=== PATIENT | female | born 1960 | race Hispanic/Latino ===

== ENCOUNTER 2016-03-14 11:04 | Emergency (ER) | payer SELFPAY ==
--- NOTE | 2016-03-14 15:28 | Emergency Department Report ---
ED Extremity Problem HPI - General Chief complaint: Extremity Injury, Lower Stated complaint: LEFT KNEE PAIN Time Seen by Provider: 03/14/16 15:15 Source: patient Mode of arrival: Ambulatory Limitations: No Limitations - Related Data Previous Rx's Medication Instructions Recorded Last Taken Type Acetaminophen with Codeine 1 tab PO Q6HR #20 tab 03/14/16 Unknown Rx [Acetaminophen-Codeine #4 TAB] Allergies Allergy/AdvReac Type Severity Reaction Status Date / Time naproxen Allergy Nausea Verified 03/14/16 11:55 ED Review of Systems ROS: Stated complaint: LEFT KNEE PAIN Other details as noted in HPI ED Past Medical Hx - Past Medical History Previous Medical History?: Yes Hx Hypertension: Yes Hx Liver Disease: Yes Additional medical history: thyroid, panreatitis - Surgical History Past Surgical History?: No - Social History Smoking Status: Current Every Day Smoker Substance Use Type: None - Medications Home Medications: Home Medications Medication Instructions Recorded Confirmed Last Taken Type Acetaminophen with Codeine 1 tab PO Q6HR #20 tab 03/14/16 Unknown Rx [Acetaminophen-Codeine #4 TAB] ED Physical Exam - General Limitations: No Limitations General appearance: alert, in no apparent distress - Head Head exam: Present: atraumatic, normocephalic - Expanded Lower Extremity Exam Left Knee exam: Present: full ROM, tenderness, swelling, erythema ED Course Vital Signs 03/14/16 11:46 Temperature 97.7 F Pulse Rate 94 H Respiratory 16 Rate Blood Pressure 158/92 O2 Sat by Pulse 100 Oximetry ED Medical Decision Making - Radiology Data Radiology results: image reviewed 03/14/16 16:00 - Radiology Dept. Note by KETURAH ONTIVEROS [facility] Num: [id number] : 1960 Patient Age: 56 LLE VENOUS DUPLEX COMPLETED. VAS LAB PRELIMINARY REPORT; NO EVIDENCE OF DVT/SVT NOTED IN VESSELS/SEGMENTS EXAMINED. PHYSICIANS REPORT TO FOLLOW... (RSK) Initialized on 03/14/16 16:00 - END OF NOTE FINAL REPORT EXAM: XR KNEE 1-2V RT HISTORY: knee pain TECHNIQUE: Left knee 2 views PRIORS: None. FINDINGS: No fracture is identified. No dislocation seen. No evidence of joint effusion. Patella demonstrates normal positioning. No acute bony abnormality identified. IMPRESSION: Negative knee series - Medical Decision Making Patient's been evaluated by this provider fast track. Ordered a Doppler for unilateral swelling and pain. Doppler came back negative. I will order a x ray of her left knee. We will treat patient for pain. We will have patient follow up with the primary care provider. Patient verbalized understanding Critical care attestation.: If time is entered above; I have spent that time in minutes in the direct care of this critically ill patient, excluding procedure time. ED Disposition Clinical Impression: Left knee pain Qualifiers: Chronicity: chronic Qualified Code(s): M25.562 - Pain in left knee; G89.29 - Other chronic pain Clinical Impression: (Ruled Out): Cellulitis and abscess of leg Disposition: DISCHARGED TO HOME OR SELFCARE Is pt being admited?: No Does the pt Need Aspirin: No Condition: Stable Additional Instructions: Is very importantly to follow with her primary care practitioner this is a chronic issue. You will be discharged on Tylenol No. 4 for pain control. Prescriptions: Acetaminophen with Codeine [Acetaminophen-Codeine #4 TAB] 1 tab PO Q6HR #20 tab Referrals: KATYA BARLOW MD [Primary Care Provider] - 3-5 Days TR CORONA MD [Staff Physician] - 3-5 Days
[2016-03-14] MEDS ORDERED: NORCO 5/325 PO ONE (17:27)
--- NOTE | 2016-03-14 18:24 | XRay Report ---
FINAL REPORT EXAM: XR KNEE 1-2V RT HISTORY: knee pain TECHNIQUE: Left knee 2 views PRIORS: None. FINDINGS: No fracture is identified. No dislocation seen. No evidence of joint effusion. Patella demonstrates normal positioning. No acute bony abnormality identified. IMPRESSION: Negative knee series
[2016-03-14 18:47] VITALS: BP 152/86
== END 2016-03-14 18:48 | disposition home or self-care (01) ==
LOC: ED 11:04
DX: M25.562 Pain in left knee (principal); G89.29 Other chronic pain; I10 Essential (primary) hypertension; F17.200 Nicotine dependence, unspecified, uncomplicated; Z88.8 Allergy status to other drugs, medicaments and biological substances

== ENCOUNTER 2016-05-19 17:30 | Emergency (ER) | payer SELFPAY ==
[2016-05-19 18:20] VITALS: BP 179/110
--- NOTE | 2016-05-19 18:42 | Emergency Department Report ---
Chief Complaint: Abdominal Pain Stated Complaint: ABD PAIN /BRUISING Time Seen by Provider: 05/19/16 18:33 - HPI History of Present Illness: 56-year-old female comes in for abdominal pain bruising of her lower abdominal 3 days. She admits to nausea vomiting fever persists. She states that her stool is black and tarry. She has a history of pancreatitis disease bipolar illness. - Exam Vital Signs: Vital Signs 05/19/16 18:14 Temperature 97.8 F Pulse Rate 109 H Respiratory 20 Rate Blood Pressure 179/110 O2 Sat by Pulse 99 Oximetry Physical Exam: The case is alert and oriented tearful in exam room cardiovascular S1-S2 regular rate and rhythm mildly tacky respiratory clear to auscultation bilateral abdomen soft and very tender ecchymotic from her suprapubic down to her vaginal. There is swelling to her lower abdomen and suprapubic area. MSE screening note: Focused history and physical exam performed. Due to findings the following was ordered: CBC CMP lipase PT PTT UA or patient be evaluated the main ER ED Disposition for MSE Condition: Stable Instructions: Abdominal Pain (ED)
[2016-05-19 19:31] LABS: Hematocrit 36.3 % (30.3-42.9); Hemoglobin 12.2 gm/dl (10.1-14.3); Mean Corpuscular HGB Conc 34 % (30-34); Mean Corpuscular Hemoglobin 31 pg (28-32); Mean Corpuscular Volume 91 fl (79-97); Platelet Count 146 K/mm3 (140-440); Red Blood Count 3.98 M/mm3 (3.65-5.03); Red Cell Distribution Width 14.4 % (13.2-15.2); White Blood Count 8.4 K/mm3 (4.5-11.0)
[2016-05-19 19:41] LABS: Alanine Aminotransferase 36 units/L (7-56); Albumin 3.4 g/dL (3.9-5); Albumin/Globulin Ratio 0.6 %; Alkaline Phosphatase 137 units/L (35-129); Anion Gap 15 mmol/L; BUN/Creatinine Ratio 11.66; Bilirubin,Total 1.6 mg/dL (0.1-1.2); Blood Urea Nitrogen 7 mg/dL (7-17); Calcium 8.5 mg/dL (8.4-10.2); Carbon Dioxide 23 mmol/L (22-30); Chloride 99.7 mmol/L (98-107); Glucose 117 mg/dL (65-100); Potassium 3.2 mmol/L (3.6-5.0); Sodium 134 mmol/L (137-145); Total Protein 9.5 g/dL (6.3-8.2)
[2016-05-19 19:46] LABS: INR 1.02 (0.87-1.13)
[2016-05-19 19:47] LABS: Partial Thromboplastin Time 31.2 Sec. (24.2-36.6)
[2016-05-19] MEDS ORDERED: NACL ONE (21:11)
--- NOTE | 2016-05-22 18:16 | ED Elopement Review ---
ED Pt Elopement review - Results review Lab results: Laboratory Tests 05/19/16 05/19/16 05/19/16 19:05 19:05 19:05 WBC 8.4 RBC 3.98 Hgb 12.2 Hct 36.3 MCV 91 MCH 31 MCHC 34 RDW 14.4 Plt Count 146 PT 13.3 INR 1.02 APTT 31.2 Sodium 134 L Potassium 3.2 L Chloride 99.7 Carbon Dioxide 23 Anion Gap 15 BUN 7 Creatinine 0.6 L Estimated GFR > 60 BUN/Creatinine Ratio 11.66 Glucose 117 H Calcium 8.5 Total Bilirubin 1.6 H AST 53 H ALT 36 Alkaline Phosphatase 137 H Total Protein 9.5 H Albumin 3.4 L Albumin/Globulin Ratio 0.6 Lipase 05/19/16 19:05 WBC RBC Hgb Hct MCV MCH MCHC RDW Plt Count PT INR APTT Sodium Potassium Chloride Carbon Dioxide Anion Gap BUN Creatinine Estimated GFR BUN/Creatinine Ratio Glucose Calcium Total Bilirubin AST ALT Alkaline Phosphatase Total Protein Albumin Albumin/Globulin Ratio Lipase 83 H - Call Back decision Pt Call Back Decision: Pt to F/U with PMD (mildly elevated liver function tests and lipase)
== END 2016-05-19 20:45 | disposition left against medical advice (07) ==
LOC: ED 17:30
DX: R10.30 Lower abdominal pain, unspecified (principal); R11.2 Nausea with vomiting, unspecified; R50.9 Fever, unspecified; Z53.21 Procedure and treatment not carried out due to patient leaving prior to being seen by health care provider
CPT/HCPCS: 36415; 80053; 83690; 85027; 85610; 85730

== ENCOUNTER 2017-01-11 15:15 | Emergency (ER) | payer MEDICAID ==
[2017-01-11 17:03] LABS: Basophils % (Auto) 0.8 % (0.0-1.8); Eosinophils % (Auto) 3.7 % (0.0-4.3); Hematocrit 38.4 % (30.3-42.9); Hemoglobin 12.8 gm/dl (10.1-14.3); Mean Corpuscular HGB Conc 33 % (30-34); Mean Corpuscular Hemoglobin 32 pg (28-32); Mean Corpuscular Volume 96 fl (79-97); Red Blood Count 4.01 M/mm3 (3.65-5.03); Red Cell Distribution Width 13.3 % (13.2-15.2); White Blood Count 4.8 K/mm3 (4.5-11.0)
[2017-01-11 17:12] LABS: INR 1.14 (0.87-1.13)
[2017-01-11 17:13] LABS: Partial Thromboplastin Time 31.6 Sec. (24.2-36.6)
[2017-01-11 17:28] LABS: Alanine Aminotransferase 81 units/L (7-56); Albumin 3.3 g/dL (3.9-5); Albumin/Globulin Ratio 0.7 %; Alkaline Phosphatase 122 units/L (35-129); Anion Gap 16 mmol/L; BUN/Creatinine Ratio 13; Blood Urea Nitrogen 8 mg/dL (7-17); Calcium 8.2 mg/dL (8.4-10.2); Carbon Dioxide 23 mmol/L (22-30); Chloride 105.2 mmol/L (98-107); Glucose 105 mg/dL (65-100); Lipase 70 units/L (13-60); Potassium 3.7 mmol/L (3.6-5.0); Sodium 140 mmol/L (137-145); Total Protein 7.9 g/dL (6.3-8.2)
[2017-01-11 17:52] LABS: Platelet Count 79 K/mm3 (140-440)
--- NOTE | 2017-01-11 20:27 | Cat Scan Report ---
FINAL REPORT PROCEDURE: CT CERVICAL SPINE WO CON TECHNIQUE: Computerized tomography of the cervical spine was performed from the skull base to T1 without contrast material. HISTORY: pain sp fall COMPARISON: No prior studies are available for comparison. FINDINGS: There is reversal of cervical lordosis. Prominent diffuse arthritic changes are seen with uncovertebral osteophytes and facet hypertrophy causing prominent bilateral neural foraminal stenosis at C3-4, C4-5, C5-6, and C6-7. Moderate central canal stenosis is seen due to these osteophytes at C4-5 and C5-6. No subluxation is seen. No prevertebral edema is seen. No C-spine fracture is seen. There may be minimal central disc bulge at C3-4. IMPRESSION: Reversal of cervical lordosis could be acute or chronic. Prominent arthritic changes are seen in the cervical spine. Mild central disc bulge is suspected at C3-4.
[2017-01-11] MEDS ORDERED: VALIUM PO ONE (20:38)
[2017-01-11] MEDS ORDERED: NORCO 5/325 PO ONE (20:38)
[2017-01-11] MEDS ORDERED: ZOFRAN ODT PO ONE (20:38)
--- NOTE | 2017-01-11 21:50 | XRay Report ---
FINAL REPORT PROCEDURE: XR CHEST ROUTINE 2V TECHNIQUE: Two views of the chest are obtained HISTORY: ble edema, chf COMPARISON: No prior studies are available for comparison. FINDINGS: The heart is normal in size. There is no focal infiltrate, pneumothorax or pleural effusion. IMPRESSION: No abnormalities are seen.
--- NOTE | 2017-01-11 22:14 | Emergency Department Report ---
HPI - General Chief Complaint: Neck Pain/Injury Time Seen by Provider: 01/11/17 20:01 - HPI HPI: 56-year-old female presents today complaining of neck pain post slipping and falling yesterday. Rates her pain as a 10 out of 10. Denies head injury or loss of consciousness. Denies trying any medication for pain relief. Patient also complaining of bilateral lower extremity edema 6 days. Denies fever, chills, nausea, vomiting, chest pain, shortness of breath, abdominal pain, dizziness, confusion, headache. Patient is currently taking Zoloft, lisinopril and levothyroxine and is being followed at [facility]. Patient also has history of hep C and pancreatitis. ED Past Medical Hx - Past Medical History Previous Medical History?: Yes Hx Hypertension: Yes Hx Liver Disease: Yes (hep C; cirrohasis) Hx Psychiatric Treatment: Yes (Bipolar) Additional medical history: thyroid, panreatitis - Surgical History Past Surgical History?: No - Social History Smoking Status: Current Every Day Smoker Substance Use Type: Alcohol - Medications Home Medications: Home Medications Medication Instructions Recorded Confirmed Last Taken Type Acetaminophen with Codeine 1 tab PO Q6HR #20 tab 03/14/16 Unknown Rx [Acetaminophen-Codeine #4 TAB] HYDROcodone/ACETAMINOPHEN [[place] 1 each PO Q6H #15 tablet 01/11/17 Unknown Rx 5-325 Tablet] Methocarbamol [Robaxin-750] 750 mg PO BID #14 tablet 01/11/17 Unknown Rx ED Review of Systems ROS: Stated complaint: FALL NECK INJURY Other details as noted in HPI Constitutional: denies: chills, fever, malaise Eyes: denies: eye pain ENT: denies: ear pain, throat pain, congestion Respiratory: denies: cough, shortness of breath, wheezing Cardiovascular: denies: chest pain, palpitations Endocrine: no symptoms reported Gastrointestinal: denies: abdominal pain, nausea, vomiting Musculoskeletal: other (lower extremity edema, neck pain) Skin: denies: rash, pruritus Neurological: denies: headache, weakness, numbness, paresthesias Physical Exam - Physical Exam Vital Signs: Vital Signs 01/11/17 16:15 Temperature 97.8 F Pulse Rate 74 Respiratory 18 Rate Blood Pressure 155/76 O2 Sat by Pulse 98 Oximetry Physical Exam: GENERAL: The patient is well-developed and well-nourished. Patient is in NAD. HEAD: Normocephalic. Atraumatic. EYES: Extraocular motions are intact, PERRL. THROAT: No erythema, swelling or exudates. Teeth and gingiva in good general condition. NECK: Vertebral and paraspinal tenderness to palpation and cervical region. Full range of motion, with pain. CHEST/LUNGS: Clear to auscultation throughout. HEART/CARDIOVASCULAR: Regular rate and rhythm. No murmurs, rubs or gallops. ABDOMEN: Abdomen is soft, nontender. Bowel sounds normoactive. No guarding or rebound tenderness. EXTREMITIES: 2+ bilateral lower extremity edema. No TTP of lower extremities. Peripheral pulses intact. Capillary refill less than 2 seconds. NEURO: Alert and oriented x 3. Normal gait. ED Course Vital Signs 01/11/17 16:15 Temperature 97.8 F Pulse Rate 74 Respiratory 18 Rate Blood Pressure 155/76 O2 Sat by Pulse 98 Oximetry ED Medical Decision Making - Lab Data Result diagrams: 01/11/17 16:29 01/11/17 16:29 Vital Signs 01/11/17 16:15 Temperature 97.8 F Pulse Rate 74 Respiratory 18 Rate Blood Pressure 155/76 O2 Sat by Pulse 98 Oximetry Lab Results 01/11/17 01/11/17 01/11/17 Range/Units 16:29 16:29 16:29 WBC 4.8 (4.5-11.0) K/mm3 RBC 4.01 (3.65-5.03) M/mm3 Hgb 12.8 (10.1-14.3) gm/dl Hct 38.4 (30.3-42.9) % MCV 96 (79-97) fl MCH 32 (28-32) pg MCHC 33 (30-34) % RDW 13.3 (13.2-15.2) % Plt Count 79 L (140-440) K/mm3 Lymph % (Auto) 34.3 (13.4-35.0) % [place] % (Auto) 5.9 (0.0-7.3) % Eos % (Auto) 3.7 (0.0-4.3) % Baso % (Auto) 0.8 (0.0-1.8) % Lymph # 1.6 (1.2-5.4) K/mm3 [place] # 0.3 (0.0-0.8) K/mm3 Eos # 0.2 (0.0-0.4) K/mm3 Baso # 0.0 (0.0-0.1) K/mm3 Seg Neutrophils % 55.3 (40.0-70.0) % Seg Neutrophils # 2.7 (1.8-7.7) K/mm3 PT 15.2 H (12.2-14.9) Sec. INR 1.14 H (0.87-1.13) APTT 31.6 (24.2-36.6) Sec. Sodium 140 (137-145) mmol/L Potassium 3.7 (3.6-5.0) mmol/L Chloride 105.2 (98-107) mmol/L Carbon Dioxide 23 (22-30) mmol/L Anion Gap 16 mmol/L BUN 8 (7-17) mg/dL Creatinine 0.6 L (0.7-1.2) mg/dL Estimated GFR > 60 ml/min BUN/Creatinine Ratio 13 % Glucose 105 H (65-100) mg/dL Calcium 8.2 L (8.4-10.2) mg/dL Total Bilirubin 0.90 (0.1-1.2) mg/dL AST 93 H (5-40) units/L ALT 81 H (7-56) units/L Alkaline Phosphatase 122 (35-129) units/L NT-Pro-B Natriuret Pep 546.0 (0-900) pg/mL Total Protein 7.9 (6.3-8.2) g/dL Albumin 3.3 L (3.9-5) g/dL Albumin/Globulin Ratio 0.7 % Lipase 70 H (13-60) units/L - Radiology Data Radiology results: report reviewed PROCEDURE: XR CHEST ROUTINE 2V TECHNIQUE: Two views of the chest are obtained HISTORY: ble edema, chf COMPARISON: No prior studies are available for comparison. FINDINGS: The heart is normal in size. There is no focal infiltrate, pneumothorax or pleural effusion. IMPRESSION: No abnormalities are seen. PROCEDURE: CT CERVICAL SPINE WO CON TECHNIQUE: Computerized tomography of the cervical spine was performed from the skull base to T1 without contrast material. HISTORY: pain sp fall COMPARISON: No prior studies are available for comparison. FINDINGS: There is reversal of cervical lordosis. Prominent diffuse arthritic changes are seen with uncovertebral osteophytes and facet hypertrophy causing prominent bilateral neural foraminal stenosis at C3-4, C4-5, C5-6, and C6-7. Moderate central canal stenosis is seen due to these osteophytes at C4-5 and C5-6. No subluxation is seen. No prevertebral edema is seen. No C-spine fracture is seen. There may be minimal central disc bulge at C3-4. IMPRESSION: Reversal of cervical lordosis could be acute or chronic. Prominent arthritic changes are seen in the cervical spine. Mild central disc bulge is suspected at C3-4. - Medical Decision Making 56-year-old female presents today complaining of neck pain post-fall. Her neck CT results reveal no acute findings, reversal of cervical lordosis is noted, prominent arthritic changes are seen in the cervical spine and mild central disc bulge is suspected at C3-C4. Patient has been provided with a referral for orthopedic to follow-up with. Patient reports some symptomatic relief post pain medication. She also complained bilateral lower extremity edema [address] Singh in regards to patient's lab results and chest x-ray. He recommended sending patient home on pain medication to follow up with primary care provider for a echocardiogram. Patient is recommended to avoid NSAIDs. Patient is in no acute distress at this time. She will be discharged home and is encouraged to follow up with a primary care provider. She will be sent home on Robaxin and Corn and is encouraged to return to the emergency room for any worsening symptoms. Critical care attestation.: If time is entered above; I have spent that time in minutes in the direct care of this critically ill patient, excluding procedure time. ED Disposition Clinical Impression: Cervicalgia, Lower extremity edema Fall Qualifiers: Encounter type: initial encounter Qualified Code(s): W19.XXXA - Unspecified fall, initial encounter Disposition: TO HOME OR SELFCARE Is pt being admited?: No Does the pt Need Aspirin: No Condition: Stable Instructions: Cervical Sprain (ED), Leg Edema (ED) Additional Instructions: Follow-up with primary care provider. Patient is advised to get an echocardiogram and avoid nonsteroidal anti-inflammatories. Return to the emergency department if symptoms worsen. Prescriptions: HYDROcodone/ACETAMINOPHEN [[place] 5-325 Tablet] 1 each PO Q6H #15 tablet Methocarbamol [Robaxin-750] 750 mg PO BID #14 tablet Referrals: PRIMARY CAREMD [Primary Care Provider] - 3-5 Days OTILIA RAMIREZ MD [Staff Physician] - 3-5 Days [facility] [Outside] - 3-5 Days RAUL PRINCE MD [Staff Physician] - 3-5 Days Forms: Work/School Release Form(ED) Time of Disposition: 22:39
[2017-01-11 22:51] VITALS: BP 143/93
== END 2017-01-11 22:57 | disposition home or self-care (01) ==
LOC: ED 15:15
DX: M54.2 Cervicalgia (principal); R60.9 Edema, unspecified; I10 Essential (primary) hypertension; F31.9 Bipolar disorder, unspecified; F17.200 Nicotine dependence, unspecified, uncomplicated; W01.0XXA Fall on same level from slipping, tripping and stumbling without subsequent striking against object, initial encounter; Y93.89 Activity, other specified; Y92.89 Other specified places as the place of occurrence of the external cause; Y99.8 Other external cause status
CPT/HCPCS: 36415; 71020; 72125; 80053; 83690; 83880; 85025; 85610; 85730; Q0162

== ENCOUNTER 2017-04-17 13:29 | Emergency (ER) | payer MEDICAID ==
[2017-04-17] MEDS ORDERED: ZOFRAN IV ONE (17:11)
[2017-04-17] MEDS ORDERED: MORPHINE IV ONE (17:11)
[2017-04-17] MEDS ORDERED: NACL 0.9% 1000 ML 1,000 ML IV ONE (17:11)
--- NOTE | 2017-04-17 17:15 | Emergency Department Report ---
Blank Doc - Documentation Documentation: Patient is 57 years old female history of pancreatitis, hepatitis C. Patient presented to the ER with epigastric pain nausea but no vomiting. Patient stated that she feel like she is falling apart. She denied any fever or diarrhea. On exam patient looks moderately dehydrated with dry skin, heart and lung exam are normal, abdomen is soft with epigastric tenderness, no rebound tenderness or guarding. Patient will need IV fluids, IV analgesia seek an anti- emetics with probable CT abdomen and pelvis depending on the lab.
[2017-04-17 17:37] LABS: Basophils % (Auto) 0.6 % (0.0-1.8); Eosinophils % (Auto) 0.9 % (0.0-4.3); Hematocrit 40.2 % (30.3-42.9); Hemoglobin 13.6 gm/dl (10.1-14.3); Lymphocytes # (Auto) 0.8 K/mm3 (1.2-5.4); Lymphocytes % (Auto) 14.7 % (13.4-35.0); Mean Corpuscular HGB Conc 34 % (30-34); Mean Corpuscular Hemoglobin 32 pg (28-32); Mean Corpuscular Volume 93 fl (79-97); Monocytes # (Auto) 0.4 K/mm3 (0.0-0.8); Monocytes % (Auto) 8.3 % (0.0-7.3); Red Blood Count 4.31 M/mm3 (3.65-5.03); Red Cell Distribution Width 13.8 % (13.2-15.2)
[2017-04-17 17:46] LABS: INR 1.04 (0.87-1.13)
[2017-04-17 17:53] LABS: Alanine Aminotransferase 78 units/L (7-56); Albumin 3.4 g/dL (3.9-5); BUN/Creatinine Ratio 11; Bilirubin,Direct 0.4 mg/dL (0-0.2); Blood Urea Nitrogen 8 mg/dL (7-17); Calcium 8.3 mg/dL (8.4-10.2); Hemolysis Index 10; Lipase 53 units/L (13-60)
[2017-04-17 18:25] LABS: Platelet Count 79 K/mm3 (140-440)
[2017-04-17 18:55] LABS: Bacteria,Urine 4+ /HPF (Negative); Bilirubin,Urine NEG (Negative); Blood,Urine SM (Negative); Color,Urine Yellow (Yellow); Mucus,Urine FEW /HPF; Nitrite,Urine POS (Negative); Protein,Urine <15 mg/dL mg/dL (Negative)
[2017-04-17] MEDS ORDERED: NACL ONE (18:58)
--- NOTE | 2017-04-17 19:57 | Cat Scan Report ---
FINAL REPORT PROCEDURE: CT ABDOMEN PELVIS W CON TECHNIQUE: Computerized axial tomography of the abdomen and pelvis was performed after the IV injection of iodinated nonionic contrast. HISTORY: abd pain COMPARISON: No prior studies are available for comparison. FINDINGS: Visualized lower thorax: No significant abnormality. Liver: Lobular contour. Spleen: Splenomegaly. Gallbladder and biliary system: The gallbladder is prominent in caliber. There is haziness of the gallbladder wall. The common bile duct measures 4 millimeters in caliber. Pancreas: Pancreatic tail calcification is noted, possibly related to prior pancreatitis. No acute inflammation is seen. Adrenals: Normal. Kidneys: Normal. GI tract: The appendix is visualized and does not appear inflamed. No bowel obstruction or acute inflammation is seen. Lymph nodes and mesentery: Upper abdominal lymph nodes measure up to 1 centimeter short axis. Vasculature: Normal. Bladder: Normal. Reproductive organs: Normal. Peritoneum: No free fluid. Musculoskeletal structures: No significant abnormality. Other: None. IMPRESSION: Possible gallbladder inflammation. Lobular contour of the liver is concerning for cirrhotic change and possible portal hypertension. Borderline enlarged upper abdominal lymph nodes.
--- NOTE | 2017-04-17 20:05 | Emergency Department Report ---
ED Abdominal Pain HPI - General Chief Complaint: Abdominal Pain Stated Complaint: STOMACH FLU Time Seen by Provider: 04/17/17 17:06 Source: patient Mode of arrival: Ambulatory Limitations: No Limitations - History of Present Illness Initial Comments: This is a 57-year-old female with a known history of alcohol use disorder and liver cirrhosis who was in her usual state of health but began having abdominal pain with nausea vomiting and a productive cough about 4 days ago. She states that she also has a history of pancreatitis. She was seen at [facility] and then sent to the emergency room for further evaluation. She also has a history of bipolar disease. MD Complaint: abdominal pain -: Gradual Location: diffuse Radiation: back Migration to: no migration Severity: moderate Severity scale (0 -10): 10 Quality: cramping Consistency: constant Improves With: nothing Worsens With: nothing Context: other (alcohol use.) Associated Symptoms: nausea, vomiting - Related Data Previous Rx's Medication Instructions Recorded Last Taken Type Acetaminophen with Codeine 1 tab PO Q6HR #20 tab 03/14/16 Unknown Rx [Acetaminophen-Codeine #4 TAB] HYDROcodone/ACETAMINOPHEN [[place] 1 each PO Q6H #15 tablet 01/11/17 Unknown Rx 5-325 Tablet] Methocarbamol [Robaxin-750] 750 mg PO BID #14 tablet 01/11/17 Unknown Rx Allergies Allergy/AdvReac Type Severity Reaction Status Date / Time naproxen Allergy Nausea Verified 04/17/17 13:49 ED Review of Systems ROS: Stated complaint: STOMACH FLU Other details as noted in HPI Comment: All other systems reviewed and negative Constitutional: see HPI Eyes: as per HPI ENT: as per HPI Respiratory: see HPI, cough Cardiovascular: as per HPI Endocrine: see HPI Gastrointestinal: abdominal pain, nausea, vomiting Genitourinary: as per HPI Musculoskeletal: as per HPI Skin: as per HPI Neurological: as per HPI Psychiatric: as per HPI Hematological/Lymphatic: as per HPI ED Past Medical Hx - Past Medical History Previous Medical History?: Yes Hx Hypertension: Yes Hx Liver Disease: Yes (hep C; cirrohosis) Hx Psychiatric Treatment: Yes (Bipolar) Additional medical history: thyroid, panreatitis - Surgical History Past Surgical History?: No - Social History Smoking Status: Current Every Day Smoker Substance Use Type: Alcohol, Marijuana - Medications Home Medications: Home Medications Medication Instructions Recorded Confirmed Last Taken Type Acetaminophen with Codeine 1 tab PO Q6HR #20 tab 03/14/16 Unknown Rx [Acetaminophen-Codeine #4 TAB] HYDROcodone/ACETAMINOPHEN [[place] 1 each PO Q6H #15 tablet 01/11/17 Unknown Rx 5-325 Tablet] Methocarbamol [Robaxin-750] 750 mg PO BID #14 tablet 01/11/17 Unknown Rx ED Physical Exam - General Limitations: No Limitations General appearance: alert, anxious, in distress (mild) - Head Head exam: Present: atraumatic, normocephalic - Eye Eye exam: Present: normal appearance, PERRL - ENT ENT exam: Present: normal exam - Neck Neck exam: Present: normal inspection, tenderness - Respiratory Respiratory exam: Present: normal lung sounds bilaterally. Absent: respiratory distress, wheezes, rales, rhonchi - Cardiovascular Cardiovascular Exam: Present: regular rate, normal rhythm, normal heart sounds - GI/Abdominal GI/Abdominal exam: Present: soft, tenderness (throughout), normal bowel sounds. Absent: guarding, rebound, rigid - Rectal Rectal exam: Present: deferred - Extremities Exam Extremities exam: Present: normal inspection, full ROM - Back Exam Back exam: Present: normal inspection, full ROM - Neurological Exam Neurological exam: Present: alert, oriented X3, CN II-XII intact - Psychiatric Psychiatric exam: Present: depressed - Skin Skin exam: Present: warm, dry, intact ED Course Vital Signs 04/17/17 13:43 Temperature 99.1 F Pulse Rate 92 H Respiratory 16 Rate Blood Pressure 148/98 O2 Sat by Pulse 98 Oximetry - Reevaluation(s) Reevaluation #1: 04/17/17 20:05 CT scan is pending at this time. We will evaluate for pancreatitis. I suspect that her pancreatitis is chronic in nature. 04/17/17 20:05 ED Medical Decision Making - Lab Data Result diagrams: 04/17/17 17:17 04/17/17 17:17 Critical care attestation.: If time is entered above; I have spent that time in minutes in the direct care of this critically ill patient, excluding procedure time. ED Disposition Clinical Impression: Alcohol abuse Abdominal pain Qualifiers: Abdominal location: generalized Qualified Code(s): R10.84 - Generalized abdominal pain Pancreatitis Qualifiers: Chronicity: acute Pancreatitis type: alcohol induced Acute pancreatitis complication: unspecified Qualified Code(s): K85.20 - Alcohol induced acute pancreatitis without necrosis or infection Disposition: DC-01 TO HOME OR SELFCARE Is pt being admited?: No Does the pt Need Aspirin: No Condition: Stable Instructions: Abdominal Pain (ED), Cirrhosis (ED), Polysubstance Abuse (ED), Pancreatitis (ED) Referrals: PRIMARY CARE, [Primary Care Provider] - 3-5 Days
--- NOTE | 2017-04-17 23:54 | Ultrasound Report ---
FINAL REPORT PROCEDURE: US ABDOMEN LIMITED TECHNIQUE: Real-time sonography was performed of the right upper quadrant with image documentation. CPT 81896 HISTORY: abd pain COMPARISON: No prior studies are available for comparison. FINDINGS: Liver demonstrates slightly increased echotexture without any focal lesions. Portal vein is patent with antegrade flow. Pancreas is not well visualized due to bowel gas. Right kidney measures 11 x 4 x 5 centimeters without calculi or hydronephrosis. It demonstrates normal echotexture. Gallbladder is well distended with normal outlines are normal wall thickness without calculi or pericholecystic collections. Common duct is 6 millimeters in caliber.. IMPRESSION: Fatty liver. Otherwise unremarkable study.
[2017-04-18 00:28] VITALS: BP 128/87
== END 2017-04-18 00:35 | disposition home or self-care (01) ==
LOC: ED 13:29
DX: K85.20 Alcohol induced acute pancreatitis without necrosis or infection (principal); R10.84 Generalized abdominal pain; F10.10 Alcohol abuse, uncomplicated; I10 Essential (primary) hypertension; F31.9 Bipolar disorder, unspecified; Z86.19 Personal history of other infectious and parasitic diseases; F17.200 Nicotine dependence, unspecified, uncomplicated; F12.10 Cannabis abuse, uncomplicated; Z88.8 Allergy status to other drugs, medicaments and biological substances
CPT/HCPCS: 36415; 74177; 76705; 80048; 80074; 81001; 83690; 85025; 85610; 96361; 96374; 96375; 99284; J2270; J2405; J7030; Q9967

== ENCOUNTER 2017-08-08 19:28 | Emergency (ER) | payer MEDICAID ==
[2017-08-08 20:53] LABS: Basophils # (Auto) 0.1 K/mm3 (0.0-0.1); Eosinophils # (Auto) 0.2 K/mm3 (0.0-0.4); Eosinophils % (Auto) 3.1 % (0.0-4.3); Hematocrit 39.5 % (30.3-42.9); Hemoglobin 13.4 gm/dl (10.1-14.3); Lymphocytes # (Auto) 2.2 K/mm3 (1.2-5.4); Lymphocytes % (Auto) 32.9 % (13.4-35.0); Mean Corpuscular HGB Conc 34 % (30-34); Mean Corpuscular Hemoglobin 32 pg (28-32); Mean Corpuscular Volume 93 fl (79-97); Monocytes # (Auto) 0.5 K/mm3 (0.0-0.8); Monocytes % (Auto) 8.1 % (0.0-7.3); Red Blood Count 4.24 M/mm3 (3.65-5.03); Red Cell Distribution Width 13.4 % (13.2-15.2)
[2017-08-08 20:54] LABS: Platelet Count 96 K/mm3 (140-440)
[2017-08-08 20:59] LABS: Alanine Aminotransferase 108 units/L (7-56); Albumin 3.5 g/dL (3.9-5); BUN/Creatinine Ratio 26; Blood Urea Nitrogen 13 mg/dL (7-17); Calcium 8.9 mg/dL (8.4-10.2); Hemolysis Index 38; Lipase 46 units/L (13-60)
[2017-08-09] MEDS ORDERED: SUBLIMAZE IV ONE (02:56)
[2017-08-09] MEDS ORDERED: ZOFRAN IV ONE (02:56)
--- NOTE | 2017-08-09 03:00 | Emergency Department Report ---
ED Abdominal Pain HPI - General Chief Complaint: Abdominal Pain Stated Complaint: HIGH BP /NECK SPASMS Time Seen by Provider: 08/09/17 02:52 Source: patient, police Mode of arrival: Wheelchair Limitations: No Limitations - History of Present Illness Initial Comments: Patient is 57 years old female brought into the ER by [place] [employer], patient is complaining of diffuse abdominal pain that is started this evening. Patient is unable to give more history. MD Complaint: abdominal pain -: Sudden Location: diffuse Radiation: none Migration to: no migration Quality: stabbing Improves With: nothing - Related Data Previous Rx's Medication Instructions Recorded Last Taken Type Acetaminophen with Codeine 1 tab PO Q6HR #20 tab 03/14/16 Unknown Rx [Acetaminophen-Codeine #4 TAB] HYDROcodone/ACETAMINOPHEN [[place] 1 each PO Q6H #15 tablet 01/11/17 Unknown Rx 5-325 Tablet] Methocarbamol [Robaxin-750] 750 mg PO BID #14 tablet 01/11/17 Unknown Rx Nitrofurantoin [place]/M-Cryst 100 mg PO Q12HR #14 capsule 04/17/17 Unknown Rx [Macrobid CAP] Ondansetron [Zofran Odt] 4 mg PO Q8HR PRN #20 tab.rapdis 04/17/17 Unknown Rx Allergies Allergy/AdvReac Type Severity Reaction Status Date / Time naproxen Allergy Nausea Verified 04/17/17 13:49 ED Review of Systems ROS: Stated complaint: HIGH BP /NECK SPASMS Other details as noted in HPI Comment: All other systems reviewed and negative Constitutional: denies: chills, fever Respiratory: denies: cough, orthopnea, shortness of breath Cardiovascular: denies: chest pain, palpitations Gastrointestinal: abdominal pain. denies: nausea, vomiting, diarrhea, constipation, hematemesis, hematochezia Musculoskeletal: denies: back pain ED Past Medical Hx - Past Medical History Hx Hypertension: Yes Hx Liver Disease: Yes (hep C; cirrohosis) Hx Psychiatric Treatment: Yes (Bipolar) Additional medical history: thyroid, panreatitis,neck pain r/t disc disease - Surgical History Past Surgical History?: No - Social History Smoking Status: Unknown if ever smoked Substance Use Type: None - Medications Home Medications: Home Medications Medication Instructions Recorded Confirmed Last Taken Type Acetaminophen with Codeine 1 tab PO Q6HR #20 tab 03/14/16 Unknown Rx [Acetaminophen-Codeine #4 TAB] HYDROcodone/ACETAMINOPHEN [[place] 1 each PO Q6H #15 tablet 01/11/17 Unknown Rx 5-325 Tablet] Methocarbamol [Robaxin-750] 750 mg PO BID #14 tablet 01/11/17 Unknown Rx Nitrofurantoin [place]/M-Cryst 100 mg PO Q12HR #14 capsule 04/17/17 Unknown Rx [Macrobid CAP] Ondansetron [Zofran Odt] 4 mg PO Q8HR PRN #20 tab.rapdis 04/17/17 Unknown Rx ED Physical Exam - General Limitations: No Limitations General appearance: alert, in distress - Head Head exam: Present: atraumatic, normocephalic, normal inspection - ENT ENT exam: Present: normal exam, normal orophraynx, mucous membranes moist - Neck Neck exam: Present: normal inspection, full ROM. Absent: tenderness, meningismus, lymphadenopathy, thyromegaly - Respiratory Respiratory exam: Present: normal lung sounds bilaterally. Absent: respiratory distress, wheezes, rales, rhonchi, stridor, chest wall tenderness, accessory muscle use, decreased breath sounds, prolonged expiratory - Cardiovascular Cardiovascular Exam: Present: regular rate, normal rhythm, normal heart sounds - GI/Abdominal GI/Abdominal exam: Present: soft, normal bowel sounds. Absent: distended, tenderness, guarding, rebound, rigid, organomegaly, mass, bruit, pulsatile mass , hernia - Extremities Exam Extremities exam: Present: normal inspection, full ROM, normal capillary refill - Back Exam Back exam: Present: normal inspection, full ROM. Absent: tenderness, CVA tenderness (R), CVA tenderness (L), muscle spasm, paraspinal tenderness, vertebral tenderness, rash noted - Neurological Exam Neurological exam: Present: alert - Skin Skin exam: Present: warm, intact, normal color ED Course Vital Signs 08/08/17 08/09/17 08/09/17 20:15 04:13 04:30 Temperature 98.4 F Pulse Rate 109 H Respiratory 20 16 16 Rate Blood Pressure 164/110 O2 Sat by Pulse 99 96 Oximetry ED Medical Decision Making - Lab Data Result diagrams: 08/08/17 20:29 08/08/17 20:29 - Radiology Data Radiology results: report reviewed Referring Physician: SOL PEREZ Patient Name: SAVANNAH LOGAN Date of : 1960 Sex: Female Report Date: 2017-08-09 Report Status: Finalized Findings [facility] [address] [place] [address] Cat Scan Report Signed Patient: SAVANNAH LOGAN MR#: [id number] : 1960 Acct:[id number] Age/Sex: 57 / F ADM Date: 08/08/17 Loc: ED Attending Dr: Ordering Physician: SOL PEREZ Date of Service: 08/09/17 Procedure(s): CT abdomen pelvis w con Accession Number(s): [id number] cc: SOL PEREZ FINAL REPORT EXAM: CT ABDOMEN PELVIS W CON HISTORY: abdominal pain TECHNIQUE: Routine axial imaging was obtained of the abdomen and pelvis following the intravenous injection of 100 cc of Omnipaque 350. Delayed imaging was obtained through the kidneys ureters and bladder. Sagittal and coronal reconstructions were reviewed. Comparison made study of 04/17/2017. FINDINGS: The lung bases are clear. Pleural fluid is not seen. There moderate size hiatal hernia. The liver has a lobulated contour compatible underlying cirrhosis. The gallbladder and biliary tree appear normal. The pancreas and adrenal glands appear normal. The spleen is at the upper limits normal in size and contains a calcified granuloma. The kidneys enhance normally. There calcification of the abdominal aorta. The bowel loops are normal in caliber and course. The appendix is normal in size and is retrocecal in position. There is no evidence of free fluid or adenopathy. In the pelvis the uterus and bladder appear normal. The skeletal structures reveal multilevel disc degeneration in the lower thoracic and lumbar spine. IMPRESSION: No acute process in the abdomen and pelvis. Contour changes of the liver compatible with underlying cirrhosis. Borderline splenomegaly. Multilevel disc degeneration in the lower thoracic and lumbar spine. Moderate size hiatal hernia. Transcribed By: RB Dictated By: OTILIA ARCHIBALD MD Electronically Authenticated By: OTILIA ARCHIBALD MD Signed Date/Time: 08/09/17409 DD/ 9 TD/TT: 08/09/17409 - Medical Decision Making Patient is awake, alert, in no acute distress. Patient brought into the ER with police clerk stated that she was arrested for methamphetamine. Officer left stating that patient can be discharged home after treatment. Critical care attestation.: If time is entered above; I have spent that time in minutes in the direct care of this critically ill patient, excluding procedure time. ED Disposition Clinical Impression: Abdominal pain, UTI (urinary tract infection) Disposition: TO HOME OR SELFCARE Is pt being admited?: No Condition: Stable Instructions: Abdominal Pain (ED), Urinary Tract Infection in Women (ED) Referrals: PRIMARY CARE, [Primary Care Provider] - 3-5 Days
--- NOTE | 2017-08-09 04:13 | Cat Scan Report ---
FINAL REPORT EXAM: CT ABDOMEN PELVIS W CON HISTORY: abdominal pain TECHNIQUE: Routine axial imaging was obtained of the abdomen and pelvis following the intravenous injection of 100 cc of Omnipaque 350. Delayed imaging was obtained through the kidneys ureters and bladder. Sagittal and coronal reconstructions were reviewed. Comparison made study of 04/17/2017. FINDINGS: The lung bases are clear. Pleural fluid is not seen. There moderate size hiatal hernia. The liver has a lobulated contour compatible underlying cirrhosis. The gallbladder and biliary tree appear normal. The pancreas and adrenal glands appear normal. The spleen is at the upper limits normal in size and contains a calcified granuloma. The kidneys enhance normally. There calcification of the abdominal aorta. The bowel loops are normal in caliber and course. The appendix is normal in size and is retrocecal in position. There is no evidence of free fluid or adenopathy. In the pelvis the uterus and bladder appear normal. The skeletal structures reveal multilevel disc degeneration in the lower thoracic and lumbar spine. IMPRESSION: No acute process in the abdomen and pelvis. Contour changes of the liver compatible with underlying cirrhosis. Borderline splenomegaly. Multilevel disc degeneration in the lower thoracic and lumbar spine. Moderate size hiatal hernia.
[2017-08-09 04:58] LABS: Bilirubin,Urine NEG (Negative); Blood,Urine NEG (Negative); Calcium Oxalate Crystals,Urine FEW; Color,Urine Yellow (Yellow); Hyaline Casts,Urine 1 /LPF; Mucus,Urine FEW /HPF; Protein,Urine <15 mg/dL mg/dL (Negative); Urobilinogen,Urine < 2.0 mg/dL (<2.0)
[2017-08-09 05:06] LABS: Benzodiazepines Screen,Urine PRESUMPTIVE NEGATIVE; Methadone Screen,Urine PRESUMPTIVE NEGATIVE; Opiate Screen,Urine PRESUMPTIVE NEGATIVE
[2017-08-09 05:20] LABS: Amphetamine Screen,Urine PRESUMPTIVE POSITIVE; Cannabinoid Screen,Urine PRESUMPTIVE POSITIVE; Cocaine Screen,Urine PRESUMPTIVE POSITIVE
[2017-08-09 05:54] VITALS: BP 150/81
== END 2017-08-09 05:58 | disposition home or self-care (01) ==
LOC: ED 19:28
DX: N39.0 Urinary tract infection, site not specified (principal); R10.9 Unspecified abdominal pain; I10 Essential (primary) hypertension; F31.9 Bipolar disorder, unspecified; Z88.8 Allergy status to other drugs, medicaments and biological substances
CPT/HCPCS: 36415; 74177; 80053; 80307; 81001; 83690; 85025; 96374; 96375; 99284; G0480; J2405; J3010; Q9967; 80320

== ENCOUNTER 2018-08-02 22:06 | Emergency (ER) | payer MEDICAID, OTHER ==
[2018-08-02] MEDS ORDERED: SUBLIMAZE IV ONE (22:50)
[2018-08-02] MEDS ORDERED: NACL 0.9% 500 ML 500 ML IV ONE (22:50)
[2018-08-02 23:17] LABS: Basophils % (Auto) 0.9 % (0.0-1.8); Eosinophils # (Auto) 0.2 K/mm3 (0.0-0.4); Eosinophils % (Auto) 4.7 % (0.0-4.3); Hematocrit 31.9 % (30.3-42.9); Hemoglobin 11.3 gm/dl (10.1-14.3); Lymphocytes # (Auto) 1.6 K/mm3 (1.2-5.4); Lymphocytes % (Auto) 38.3 % (13.4-35.0); Mean Corpuscular HGB Conc 35 % (30-34); Mean Corpuscular Volume 96 fl (79-97); Monocytes # (Auto) 0.3 K/mm3 (0.0-0.8); Monocytes % (Auto) 8.3 % (0.0-7.3); Red Blood Count 3.33 M/mm3 (3.65-5.03); Red Cell Distribution Width 13.4 % (13.2-15.2)
[2018-08-02 23:18] LABS: Platelet Count 73 K/mm3 (140-440)
[2018-08-02 23:39] LABS: Creatine Kinase MB 3.3 ng/mL (0.0-4.0)
[2018-08-02 23:41] LABS: Alanine Aminotransferase 38 units/L (7-56); BUN/Creatinine Ratio 20; Blood Urea Nitrogen 10 mg/dL (7-17); Calcium 8.2 mg/dL (8.4-10.2)
[2018-08-02 23:42] LABS: Albumin 2.8 g/dL (3.9-5); Hemolysis Index 4
[2018-08-02 23:45] LABS: Albumin 2.8 g/dL (3.9-5); Bilirubin,Direct 0.3 mg/dL (0-0.2)
--- NOTE | 2018-08-02 23:52 | XRay Report ---
PROCEDURE: XR CHEST 1V AP TECHNIQUE: Chest radiograph single view. HISTORY: cp COMPARISONS: Comparison is January 11, 2017 . FINDINGS: Heart: Normal. Mediastinum/Vessels: Normal. Lungs/Pleural space: Normal. Bony thorax: No acute osseous abnormality. Life support devices: None. IMPRESSION: No acute cardiopulmonary abnormality. This document is electronically signed by Yaya Spears MD., Aug 02 2018 11:50:03 PM ET
[2018-08-02 23:58] LABS: INR 1.07 (0.87-1.13)
[2018-08-02 23:59] LABS: Partial Thromboplastin Time 33.3 Sec. (24.2-36.6); Thrombin Time 18.3 Sec. (15.1-19.6)
[2018-08-03] MEDS ORDERED: MAG-OX PO ONE (00:10)
[2018-08-03] MEDS ORDERED: MAGNESIUM SULFATE 2GM/50ML 2 GM/50 ML BAG IV ONE (00:10)
[2018-08-03] MEDS ORDERED: K-DUR PO ONE (00:10)
--- NOTE | 2018-08-03 00:12 | Emergency Department Report ---
<NINA CHAN - Last Filed: 08/03/18 05:11> ED General Adult HPI - General Chief complaint: Chest Pain Stated complaint: CHEST PAIN Time Seen by Provider: 08/02/18 22:36 - Related Data Previous Rx's Medication Instructions Recorded Last Taken Type Acetaminophen with Codeine 1 tab PO Q6HR #20 tab 03/14/16 Unknown Rx [Acetaminophen-Codeine #4 TAB] HYDROcodone/ACETAMINOPHEN [[place] 1 each PO Q6H #15 tablet 01/11/17 Unknown Rx 5-325 Tablet] Methocarbamol [Robaxin-750] 750 mg PO BID #14 tablet 01/11/17 Unknown Rx Nitrofurantoin [place]/M-Cryst 100 mg PO Q12HR #14 capsule 04/17/17 Unknown Rx [Macrobid CAP] Ondansetron [Zofran Odt] 4 mg PO Q8HR PRN #20 tab.rapdis 04/17/17 Unknown Rx Ciprofloxacin HCl [Ciprofloxacin 500 mg PO Q12H #14 tab 08/09/17 Unknown Rx TAB] Ondansetron [Zofran Odt] 4 mg PO Q8HR PRN #14 tab.rapdis 08/09/17 Unknown Rx traMADol [Ultram 50 MG tab] 50 mg PO Q4HR PRN #14 tablet 08/09/17 Unknown Rx Famotidine [Pepcid] 20 mg PO BID #30 tablet 08/03/18 Unknown Rx Magnesium Oxide 500 mg PO BID #30 capsule 08/03/18 Unknown Rx Potassium Chloride 20 meq PO QDAY #30 packet 08/03/18 Unknown Rx Allergies Allergy/AdvReac Type Severity Reaction Status Date / Time naproxen Allergy Nausea Verified 08/02/18 22:23 ED Past Medical Hx - Medications Home Medications: Home Medications Medication Instructions Recorded Confirmed Last Taken Type Acetaminophen with Codeine 1 tab PO Q6HR #20 tab 03/14/16 Unknown Rx [Acetaminophen-Codeine #4 TAB] HYDROcodone/ACETAMINOPHEN [[place] 1 each PO Q6H #15 tablet 01/11/17 Unknown Rx 5-325 Tablet] Methocarbamol [Robaxin-750] 750 mg PO BID #14 tablet 01/11/17 Unknown Rx Nitrofurantoin [place]/M-Cryst 100 mg PO Q12HR #14 capsule 04/17/17 Unknown Rx [Macrobid CAP] Ondansetron [Zofran Odt] 4 mg PO Q8HR PRN #20 tab.rapdis 04/17/17 Unknown Rx Ciprofloxacin HCl [Ciprofloxacin 500 mg PO Q12H #14 tab 08/09/17 Unknown Rx TAB] Ondansetron [Zofran Odt] 4 mg PO Q8HR PRN #14 tab.rapdis 08/09/17 Unknown Rx traMADol [Ultram 50 MG tab] 50 mg PO Q4HR PRN #14 tablet 08/09/17 Unknown Rx Famotidine [Pepcid] 20 mg PO BID #30 tablet 08/03/18 Unknown Rx Magnesium Oxide 500 mg PO BID #30 capsule 08/03/18 Unknown Rx Potassium Chloride 20 meq PO QDAY #30 packet 08/03/18 Unknown Rx ED Medical Decision Making - Lab Data Result diagrams: 08/02/18 23:04 08/02/18 23:04 - Radiology Data PROCEDURE: CT ANGIO CHEST TECHNIQUE: Computerized tomographic angiography of the chest was performed after the IV injection of iodinated nonionic contrast including image processing. The image data was postprocessed using 2-dimensional multiplanar reformatted (MPR) and 3-dimensional (MIP and/or volume rendered) techniques. Automated exposure control, adjustment of mA and/or kV according to patient size, or iterative reconstruction dose optimization techniques were utilized. CT DOSE LENGTH PRODUCT: mGycm HISTORY: weak cp near syncope COMPARISONS: None . FINDINGS: Heart and pericardium: Normal. Thoracic aorta: There is no thoracic aortic aneurysm or dissection.. Pulmonary vasculature: There is no pulmonary embolism.. Lymph nodes: No enlarged thoracic lymph nodes. Lungs: Lungs are expanded. There are mild fibroemphysematous changes. There is no infiltrate.. Pleural space: No effusion, thickening, or pneumothorax. Musculoskeletal structures: No significant abnormality. Upper abdominal structures: Images of the upper abdomen demonstrate an enlarged nodular liver suggesting cirrhosis. There is cholelithiasis.. IMPRESSION: There is no pulmonary embolism. . ED Disposition Clinical Impression: Chest wall pain, Hypokalemia, Hypomagnesemia Disposition: -01 TO HOME OR SELFCARE Is pt being admited?: No Condition: Stable Instructions: Chest Pain (ED) Additional Instructions: Avoid consumption of alcohol. Take the supplements as directed. Take pain medication as needed/directed. Follow up with a wrapper sorter within the next 3-5 days for chest wall pain. Follow-up with the primary care doctor or gastroenterology specialist within the next 3-4 weeks for presumed manifestations of cirrhosis, including low platelet count, and low potassium, low magnesium. make sure to consume plenty of fluids when the hot sun. Attempt to seek mcc and cold air-conditioning one is very hot out. Do not drive or operate motor vehicles until cleared are instructed to by a primary care doctor. Return to the emergency room right away with new, worsening or different symptoms, or symptoms not present on the initial ER evaluation. Prescriptions: Magnesium Oxide 500 mg PO BID #30 capsule Famotidine [Pepcid] 20 mg PO BID #30 tablet Potassium Chloride 20 meq PO QDAY #30 packet Referrals: [facility] [Provider Group] - 3-5 Days [facility] [Provider Group] - 3-5 Days [facility] [Provider Group] - 3-5 Days <CHRISTINA BROOKE - Last Filed: 08/04/18 11:01> ED General Adult HPI - General Source: patient, EMS (ems notes not available at time of chart dictation), RN notes reviewed Mode of arrival: Stretcher Limitations: No Limitations, Other (the patient is a difficult and poor historian) - History of Present Illness Initial comments: This is a 58-year-old female. The patient is not known to this provider previously. The patient may have a history of cirrhosis. She reportedly may also have a history of hypertension, bipolar, hepatitis C, pancreatitis, chronic pain The patient is brought to the hospital by emergency medical services with complaint of nontraumatic left sided chest wall pain. The pain has been present since 2:00 PM. The pain is constant. It is sharp and achy. It increases with palpation. It decreases with rest. There is no vomiting. The patient denies DVT, pulmonary embolus risk factors. The patient endorses a sensation of "burning", and states that she feels like her face is on fire. She also endorses a sensation of crusted eyes. The patient further endorses that on Monday, she was walking in the extreme heat, and felt like she was passed out. She is not sure if she really lost consciousness or not. She also complains about a broken left great toenail. The patient denies urinary symptoms. The patient denies vomiting. The patient denies exertional shortness of breath. The patient denies recent aspirin consumption. The patient denies urinary symptoms. -: Sudden Location: chest Radiation: non-radiation Severity scale (0 -10): 10 Quality: aching Consistency: constant Improves with: rest Worsens with: movement ED Review of Systems ROS: Stated complaint: CHEST PAIN Other details as noted in HPI Constitutional: fever (questioned fever on Monday, patient is not certain.), malaise, weakness Eyes: eye discharge. denies: vision change ENT: denies: epistaxis Respiratory: denies: wheezing Cardiovascular: chest pain Gastrointestinal: denies: vomiting Genitourinary: dysuria Musculoskeletal: arthralgia, myalgia Skin: denies: lesions Neurological: weakness Psychiatric: anxiety ED Past Medical Hx - Past Medical History Previous Medical History?: Yes Hx Hypertension: Yes Hx Liver Disease: Yes (hep C; cirrohosis) Hx Psychiatric Treatment: Yes (Bipolar) Additional medical history: thyroid, panreatitis,neck pain r/t disc disease - Surgical History Past Surgical History?: No - Social History Smoking Status: Current Every Day Smoker Substance Use Type: Alcohol, Cocaine, Marijuana ED Physical Exam - General Limitations: Other (patient is a poor historian) General appearance: alert, in no apparent distress, anxious - Head Head exam: Present: atraumatic, normocephalic - Eye Eye exam: Present: normal appearance, PERRL, EOMI. Absent: scleral icterus, conjunctival injection, nystagmus - ENT ENT exam: Present: normal exam, normal orophraynx, mucous membranes moist, normal external ear exam - Neck Neck exam: Present: normal inspection, full ROM. Absent: tenderness, meningismus - Respiratory Respiratory exam: Present: normal lung sounds bilaterally, chest wall tenderness, other (chaperoned by nurse Keyona Hammond during breast examination. There is no redness, pus or streaking). Absent: respiratory distress, wheezes, rales, rhonchi, stridor - Cardiovascular Cardiovascular Exam: Present: regular rate, normal rhythm, normal heart sounds. Absent: bradycardia, tachycardia, irregular rhythm, systolic murmur, diastolic murmur, rubs, gallop - GI/Abdominal GI/Abdominal exam: Present: soft. Absent: distended, tenderness, guarding, rebound, rigid, pulsatile mass - Extremities Exam Extremities exam: Present: normal inspection (patient appears to have no obvious redness, pus or streaking on the lower extremities. She appears to be unwashed on her lower extremities. Small broken nail noted on the left great toe. Does not appear to be acutely superinfected), full ROM, pedal edema, other (2+ pulses noted in the bilateral upper, lower extremities. Compartments soft. No long bony tenderness. The pelvis is stable.). Absent: calf tenderness - Back Exam Back exam: Present: normal inspection, full ROM. Absent: tenderness, CVA tenderness (R), CVA tenderness (L), paraspinal tenderness, vertebral tenderness - Neurological Exam Neurological exam: Present: alert, oriented X3, normal gait, other (Extraocular movements intact. Tongue midline. No facial droop. Facial sensation intact to light touch in the V1, V2, V3 distribution bilaterally. 5 and 5 strength in 4 extremities.. Sensation is intact to light touch in 4 extremities.). Absent: motor sensory deficit - Psychiatric Psychiatric exam: Present: anxious - Skin Skin exam: Present: warm, dry, intact, normal color. Absent: rash ED Course Vital Signs 08/02/18 08/02/18 08/02/18 22:09 22:36 22:46 Temperature 98.4 F 98.2 F Pulse Rate 90 75 Respiratory 18 22 Rate Blood Pressure 142/80 Blood Pressure 101/77 [Left] O2 Sat by Pulse 99 98 99 Oximetry 08/02/18 08/03/18 08/03/18 23:15 01:47 02:00 Temperature Pulse Rate 90 81 82 Respiratory 22 13 22 Rate Blood Pressure 101/72 119/69 119/69 Blood Pressure [Left] O2 Sat by Pulse 95 100 Oximetry 08/03/18 08/03/18 08/03/18 02:31 03:00 03:40 Temperature Pulse Rate 78 66 62 Respiratory 14 12 Rate Blood Pressure 119/69 120/63 120/63 Blood Pressure [Left] O2 Sat by Pulse 96 96 Oximetry - Reevaluation(s) Reevaluation #1: 08/03/18 01:14 Differential diagnosis, including but not limited to: GERD, gastritis, hiatal hernia, pneumonia, costochondritis, pulmonary embolus Poorly managed cirrhosis, electrolyte derangement, chronic psychiatric disease, heat exposure, heat stroke, now resolved, poor hygiene Assessment and plan: 58-year-old female with multiple complaints. In terms of the patient's chest pain, it is reproducible, troponin negative 2, EKG abnormal, but not consistent with ST elevation myocardial infarction. Patient endorses no DVT or pulmonary embolus risk factors. However, given that she is a poor historian, we will obtain CT scan of the chest to exclude pulmonary embolus. X-ray of the chest appears to be unremarkable. Given the reproducible nature of the chest wall pain, left diaphoresis, lack of exertional component, I think it would be reasonable to have the patient follow- up with an outpatient wrapper sorter for an outpatient cardiac stress test, assuming no pulmonary embolus is noted in the emergency room. Apparently, the patient was out in the extreme heat on Monday, and may have had heat exhaustion versus dehydration. In the emergency room today she is normothermic. She walks with a steady gait. She is clinically sober, although somewhat disorganized. However, she does not meet 1013 criteria. She is evidence of malnutrition and poorly managed presumed liver disease, manifested by lower extremity edema, hypokalemia, and hypomagnesemia. Transaminitis improved with catheter prior. There is no abdominal pain or tenderness. Unfortunately, the patient is reportedly allergic to Naprosyn. Given history of cirrhosis, reluctant to initiate acetaminophen therapy. Not a candidate for opioids in my opinion. Reevaluation #2: 08/03/18 01:49 Patient resting comfortably, and in no acute distress. CT scan interpretation is pending. Care is transferred to the overnight physician, Dr. Keyona Chan, to follow up on CT scan chest interpretation, and if negative, as anticipated, discharged to follow-up. 08/04/18 11:00 Patient not a candidate for NSAIDs given thrombocytopenia, history of cirrhosis, and reported allergy to Naprosyn. Not an acetaminophen candidate for pain control, given history of cirrhosis. Have not identified any condition that will require administration of outpatient narcotics at this point in time. 08/04/18 11:01 ED Medical Decision Making - Lab Data Result diagrams: 08/02/18 23:04 08/02/18 23:04 Vital Signs 08/02/18 08/02/18 08/02/18 22:09 22:36 22:46 Temperature 98.4 F 98.2 F Pulse Rate 90 75 Respiratory 18 22 Rate Blood Pressure 142/80 Blood Pressure 101/77 [Left] O2 Sat by Pulse 99 98 99 Oximetry 08/02/18 23:15 Temperature Pulse Rate 90 Respiratory 22 Rate Blood Pressure 101/72 Blood Pressure [Left] O2 Sat by Pulse Oximetry Lab Results 08/02/18 08/02/18 08/02/18 Range/Units 23:04 23:04 23:04 WBC (4.5-11.0) K/mm3 RBC (3.65-5.03) M/mm3 Hgb (10.1-14.3) gm/dl Hct (30.3-42.9) % MCV (79-97) fl MCH (28-32) pg MCHC (30-34) % RDW (13.2-15.2) % Plt Count (140-440) K/mm3 Lymph % (Auto) (13.4-35.0) % [place] % (Auto) (0.0-7.3) % Eos % (Auto) (0.0-4.3) % Baso % (Auto) (0.0-1.8) % Lymph # (1.2-5.4) K/mm3 [place] # (0.0-0.8) K/mm3 Eos # (0.0-0.4) K/mm3 Baso # (0.0-0.1) K/mm3 Seg Neutrophils % (40.0-70.0) % Seg Neutrophils # (1.8-7.7) K/mm3 PT (12.2-14.9) Sec. INR (0.87-1.13) APTT (24.2-36.6) Sec. Thrombin Time (15.1-19.6) Sec. Sodium (137-145) mmol/L Potassium (3.6-5.0) mmol/L Chloride (98-107) mmol/L Carbon Dioxide (22-30) mmol/L Anion Gap mmol/L BUN (7-17) mg/dL Creatinine (0.7-1.2) mg/dL Estimated GFR ml/min BUN/Creatinine Ratio % Glucose (65-100) mg/dL Calcium (8.4-10.2) mg/dL Magnesium 1.60 L (1.7-2.3) mg/dL Total Bilirubin 0.80 (0.1-1.2) mg/dL Direct Bilirubin 0.3 H (0-0.2) mg/dL Indirect Bilirubin 0.5 mg/dL AST 50 H (5-40) units/L ALT 37 (7-56) units/L Alkaline Phosphatase 116 (35-129) units/L Ammonia 41.0 (25-60) umol/L Total Creatine Kinase (30-135) units/L CK-MB (CK-2) (0.0-4.0) ng/mL CK-MB (CK-2) Rel Index (0-4) Troponin T (0.00-0.029) ng/mL Total Protein 6.9 (6.3-8.2) g/dL Albumin 2.8 L (3.9-5) g/dL Albumin/Globulin Ratio 0.7 % Salicylates < 0.3 L (2.8-20.0) mg/dL Acetaminophen (10.0-30.0) ug/mL 08/02/18 08/02/18 08/02/18 Range/Units 23:04 23:04 23:04 WBC 4.2 L (4.5-11.0) K/mm3 RBC 3.33 L (3.65-5.03) M/mm3 Hgb 11.3 (10.1-14.3) gm/dl Hct 31.9 (30.3-42.9) % MCV 96 (79-97) fl MCH 34 H (28-32) pg MCHC 35 H (30-34) % RDW 13.4 (13.2-15.2) % Plt Count 73 L (140-440) K/mm3 Lymph % (Auto) 38.3 H (13.4-35.0) % [place] % (Auto) 8.3 H (0.0-7.3) % Eos % (Auto) 4.7 H (0.0-4.3) % Baso % (Auto) 0.9 (0.0-1.8) % Lymph # 1.6 (1.2-5.4) K/mm3 [place] # 0.3 (0.0-0.8) K/mm3 Eos # 0.2 (0.0-0.4) K/mm3 Baso # 0.0 (0.0-0.1) K/mm3 Seg Neutrophils % 47.8 (40.0-70.0) % Seg Neutrophils # 2.0 (1.8-7.7) K/mm3 PT 14.6 (12.2-14.9) Sec. INR 1.07 (0.87-1.13) APTT 33.3 (24.2-36.6) Sec. Thrombin Time 18.3 (15.1-19.6) Sec. Sodium (137-145) mmol/L Potassium (3.6-5.0) mmol/L Chloride (98-107) mmol/L Carbon Dioxide (22-30) mmol/L Anion Gap mmol/L BUN (7-17) mg/dL Creatinine (0.7-1.2) mg/dL Estimated GFR ml/min BUN/Creatinine Ratio % Glucose (65-100) mg/dL Calcium (8.4-10.2) mg/dL Magnesium (1.7-2.3) mg/dL Total Bilirubin (0.1-1.2) mg/dL Direct Bilirubin (0-0.2) mg/dL Indirect Bilirubin mg/dL AST (5-40) units/L ALT (7-56) units/L Alkaline Phosphatase (35-129) units/L Ammonia (25-60) umol/L Total Creatine Kinase (30-135) units/L CK-MB (CK-2) (0.0-4.0) ng/mL CK-MB (CK-2) Rel Index (0-4) Troponin T (0.00-0.029) ng/mL Total Protein (6.3-8.2) g/dL Albumin (3.9-5) g/dL Albumin/Globulin Ratio % Salicylates (2.8-20.0) mg/dL Acetaminophen < 5.0 L (10.0-30.0) ug/mL 08/02/18 08/03/18 Range/Units 23:04 00:27 WBC (4.5-11.0) K/mm3 RBC (3.65-5.03) M/mm3 Hgb (10.1-14.3) gm/dl Hct (30.3-42.9) % MCV (79-97) fl MCH (28-32) pg MCHC (30-34) % RDW (13.2-15.2) % Plt Count (140-440) K/mm3 Lymph % (Auto) (13.4-35.0) % [place] % (Auto) (0.0-7.3) % Eos % (Auto) (0.0-4.3) % Baso % (Auto) (0.0-1.8) % Lymph # (1.2-5.4) K/mm3 [place] # (0.0-0.8) K/mm3 Eos # (0.0-0.4) K/mm3 Baso # (0.0-0.1) K/mm3 Seg Neutrophils % (40.0-70.0) % Seg Neutrophils # (1.8-7.7) K/mm3 PT (12.2-14.9) Sec. INR (0.87-1.13) APTT (24.2-36.6) Sec. Thrombin Time (15.1-19.6) Sec. Sodium 140 (137-145) mmol/L Potassium 3.1 L (3.6-5.0) mmol/L Chloride 109.0 H (98-107) mmol/L Carbon Dioxide 21 L (22-30) mmol/L Anion Gap 13 mmol/L BUN 10 (7-17) mg/dL Creatinine 0.5 L (0.7-1.2) mg/dL Estimated GFR > 60 ml/min BUN/Creatinine Ratio 20 % Glucose 87 (65-100) mg/dL Calcium 8.2 L (8.4-10.2) mg/dL Magnesium (1.7-2.3) mg/dL Total Bilirubin 0.80 (0.1-1.2) mg/dL Direct Bilirubin (0-0.2) mg/dL Indirect Bilirubin mg/dL AST 51 H (5-40) units/L ALT 38 (7-56) units/L Alkaline Phosphatase 118 (35-129) units/L Ammonia (25-60) umol/L Total Creatine Kinase 220 H (30-135) units/L CK-MB (CK-2) 3.3 (0.0-4.0) ng/mL CK-MB (CK-2) Rel Index 1.5 (0-4) Troponin T < 0.010 < 0.010 (0.00-0.029) ng/mL Total Protein 7.3 (6.3-8.2) g/dL Albumin 2.8 L (3.9-5) g/dL Albumin/Globulin Ratio 0.6 % Salicylates (2.8-20.0) mg/dL Acetaminophen (10.0-30.0) ug/mL - EKG Data -: EKG Interpreted by Me EKG shows normal: sinus rhythm Rate: normal - EKG Data 08/03/18 01:17 EKG shows a sinus rhythm, 84 bpm, low voltage, left axis, left axis deviation, motion artifact, QTC prolonged, this is an abnormal EKG. There is no prior for comparison. This EKG is not consistent with ST elevation myocardial infarction. - Radiology Data Radiology results: report reviewed, image reviewed X-ray of the chest is negative for acute disease. Noncontrast CT scan of the brain is negative for acute disease. cta chest negative for acute disease Incidental findings reviewed and appreciated, with known history of chronic cirrhosis. Critical care attestation.: If time is entered above; I have spent that time in minutes in the direct care of this critically ill patient, excluding procedure time. ED Disposition Is pt being admited?: No Does the pt Need Aspirin: No
--- NOTE | 2018-08-03 01:10 | Cat Scan Report ---
PROCEDURE: CT HEAD/BRAIN WO CON TECHNIQUE: Computerized tomography of the head was performed without contrast material. CT DOSE LENGTH PRODUCT: mGycm HISTORY: weak states ? pass out monday COMPARISONS: None . FINDINGS: Skull and scalp: Normal . Paranasal sinuses: Normal . Ventricles and subarachnoid spaces: Normal . Cerebrum: No evidence of hemorrhage, acute infarction or mass . Cerebellum and brainstem: No evidence of hemorrhage, acute infarction or mass . Vasculature: Normal . IMPRESSION: Normal Examination . This document is electronically signed by Jorge Estrada MD., Aug 03 2018 01:08:45 AM ET
[2018-08-03] MEDS: KCL 10MEQ/100ML 10 MEQ/100 ML BAG IV SCH ×2 (01:58→02:58)
--- NOTE | 2018-08-03 02:59 | Cat Scan Report ---
PROCEDURE: CT ANGIO CHEST TECHNIQUE: Computerized tomographic angiography of the chest was performed after the IV injection of iodinated nonionic contrast including image processing. The image data was postprocessed using 2-di mensional multiplanar reformatted (MPR) and 3-dimensional (MIP and/or volume rendered) techniques. Au tomated exposure control, adjustment of mA and/or kV according to patient size, or iterative reconstr uction dose optimization techniques were utilized. CT DOSE LENGTH PRODUCT: mGycm HISTORY: weak cp near syncope COMPARISONS: None . FINDINGS: Heart and pericardium: Normal. Thoracic aorta: There is no thoracic aortic aneurysm or dissection.. Pulmonary vasculature: There is no pulmonary embolism.. Lymph nodes: No enlarged thoracic lymph nodes. Lungs: Lungs are expanded. There are mild fibroemphysematous changes. There is no infiltrate.. Pleural space: No effusion, thickening, or pneumothorax. Musculoskeletal structures: No significant abnormality. Upper abdominal structures: Images of the upper abdomen demonstrate an enlarged nodular liver sugges ting cirrhosis. There is cholelithiasis.. IMPRESSION: There is no pulmonary embolism. . This document is electronically signed by Jorge Estrada MD., Aug 03 2018 02:57:21 AM ET
[2018-08-03] MEDS ORDERED: NACL 0.9% 500 ML 500 ML ONE (03:39)
[2018-08-03 05:28] VITALS: BP 120/63
== END 2018-08-03 05:00 | disposition home or self-care (01) ==
LOC: ED 22:06
DX: R07.89 Other chest pain (principal); E87.6 Hypokalemia; E83.42 Hypomagnesemia
CPT/HCPCS: 36415; 70450; 71045; 71275; 80053; 80076; 82140; 82550; 82553; 83735; 84484; 85025; 85610; 85670; 85730; 93005; 93010; 96365; 96366; 99285; G0480; J3010; J3475; J3480; J7040; Q9967; 80320

== ENCOUNTER 2018-08-07 14:19 | Emergency (ER) | payer MEDICAID ==
[2018-08-07 14:37] VITALS: BP 165/80
[2018-08-07 15:08] LABS: Basophils % (Auto) 0.7 % (0.0-1.8); Eosinophils # (Auto) 0.1 K/mm3 (0.0-0.4); Eosinophils % (Auto) 4.1 % (0.0-4.3); Hematocrit 39.4 % (30.3-42.9); Hemoglobin 13.7 gm/dl (10.1-14.3); Lymphocytes # (Auto) 0.8 K/mm3 (1.2-5.4); Lymphocytes % (Auto) 27.9 % (13.4-35.0); Mean Corpuscular HGB Conc 35 % (30-34); Mean Corpuscular Volume 96 fl (79-97); Monocytes # (Auto) 0.2 K/mm3 (0.0-0.8); Monocytes % (Auto) 7.7 % (0.0-7.3); Red Blood Count 4.11 M/mm3 (3.65-5.03); Red Cell Distribution Width 13.8 % (13.2-15.2)
[2018-08-07 15:21] LABS: Platelet Count 66 K/mm3 (140-440)
[2018-08-07 15:26] LABS: BUN/Creatinine Ratio 10; Blood Urea Nitrogen 5 mg/dL (7-17); Calcium 8.3 mg/dL (8.4-10.2); Hemolysis Index 7
[2018-08-07] MEDS ORDERED: NACL 0.9% 1000 ML 1,000 ML IV ONE (17:42)
[2018-08-07] MEDS ORDERED: BENTYL IM ONE (17:42)
[2018-08-07] MEDS ORDERED: ZOFRAN IV ONE (17:42)
[2018-08-07 18:22] LABS: Albumin 3.1 g/dL (3.9-5)
[2018-08-07 18:24] LABS: Bilirubin,Direct < 0.2 mg/dL (0-0.2)
[2018-08-07 18:38] LABS: Alanine Aminotransferase 36 units/L (7-56)
--- NOTE | 2018-08-07 19:17 | Emergency Department Report ---
ED Abdominal Pain HPI - General Chief Complaint: Abdominal Pain Stated Complaint: ABD PAIN/HERNIA Time Seen by Provider: 08/07/18 17:35 Source: patient, EMS Mode of arrival: Wheelchair Limitations: No Limitations - History of Present Illness Initial Comments: This is a 58-year-old white female with history of hypertension ,umbilical hernia, and EtOH abuse patient was seen 3 days ago for chest pain, pt states cp is resolved , but now her hernia is aching , patient states she is tolerating by mouth intake without n/v, there is no fever no chills, pt denies substane or alcohol, states hernia is chronic problem and this is the second flare this amilcar r. pt has had CT head and chest on 08/03/2018, ekg, serial cardiac engzymes, and cxr on 08/03/2018, states abd pain is primary concern tonight. MD Complaint: abdominal pain Onset/Timin -: days(s) Location: LUQ, LLQ Radiation: LUQ, LLQ Migration to: no migration Severity scale (0 -10): 5 Quality: cramping, aching Consistency: intermittent Improves With: rest Associated Symptoms: denies: nausea, vomiting, diarrhea, fever, chills, constipation, dysuria, melena, hematuria, syncope - Related Data Previous Rx's Medication Instructions Recorded Last Taken Type Acetaminophen with Codeine 1 tab PO Q6HR #20 tab 03/14/16 Unknown Rx [Acetaminophen-Codeine #4 TAB] HYDROcodone/ACETAMINOPHEN [[place] 1 each PO Q6H #15 tablet 01/11/17 Unknown Rx 5-325 Tablet] Methocarbamol [Robaxin-750] 750 mg PO BID #14 tablet 01/11/17 Unknown Rx Nitrofurantoin [place]/M-Cryst 100 mg PO Q12HR #14 capsule 04/17/17 Unknown Rx [Macrobid CAP] Ondansetron [Zofran Odt] 4 mg PO Q8HR PRN #20 tab.rapdis 04/17/17 Unknown Rx Ciprofloxacin HCl [Ciprofloxacin 500 mg PO Q12H #14 tab 08/09/17 Unknown Rx TAB] Ondansetron [Zofran Odt] 4 mg PO Q8HR PRN #14 tab.rapdis 08/09/17 Unknown Rx traMADol [Ultram 50 MG tab] 50 mg PO Q4HR PRN #14 tablet 08/09/17 Unknown Rx Famotidine [Pepcid] 20 mg PO BID #30 tablet 08/03/18 Unknown Rx Magnesium Oxide 500 mg PO BID #30 capsule 08/03/18 Unknown Rx Potassium Chloride 20 meq PO QDAY #30 packet 08/03/18 Unknown Rx Allergies Allergy/AdvReac Type Severity Reaction Status Date / Time naproxen Allergy Nausea Verified 08/07/18 14:31 ED Review of Systems ROS: Stated complaint: ABD PAIN/HERNIA Other details as noted in HPI Constitutional: denies: chills, fever Eyes: denies: eye pain, eye discharge, vision change ENT: denies: ear pain, throat pain Respiratory: denies: cough, shortness of breath, wheezing Cardiovascular: denies: chest pain, palpitations Endocrine: no symptoms reported Gastrointestinal: abdominal pain. denies: nausea, vomiting, diarrhea, constipation, hematemesis, melena, hematochezia Genitourinary: denies: urgency, dysuria, frequency, hematuria, discharge, dyspareunia Musculoskeletal: denies: back pain, joint swelling, arthralgia Skin: denies: rash, lesions Neurological: denies: headache, weakness, paresthesias Psychiatric: as per HPI Hematological/Lymphatic: denies: easy bleeding, easy bruising ED Past Medical Hx - Past Medical History Hx Hypertension: Yes Hx Liver Disease: Yes (hep C; cirrohosis) Hx Psychiatric Treatment: Yes (Bipolar) Additional medical history: thyroid, panreatitis,neck pain r/t disc disease - Social History Smoking Status: Current Every Day Smoker Substance Use Type: Alcohol - Medications Home Medications: Home Medications Medication Instructions Recorded Confirmed Last Taken Type Acetaminophen with Codeine 1 tab PO Q6HR #20 tab 03/14/16 Unknown Rx [Acetaminophen-Codeine #4 TAB] HYDROcodone/ACETAMINOPHEN [[place] 1 each PO Q6H #15 tablet 01/11/17 Unknown Rx 5-325 Tablet] Methocarbamol [Robaxin-750] 750 mg PO BID #14 tablet 01/11/17 Unknown Rx Nitrofurantoin [place]/M-Cryst 100 mg PO Q12HR #14 capsule 04/17/17 Unknown Rx [Macrobid CAP] Ondansetron [Zofran Odt] 4 mg PO Q8HR PRN #20 tab.rapdis 04/17/17 Unknown Rx Ciprofloxacin HCl [Ciprofloxacin 500 mg PO Q12H #14 tab 08/09/17 Unknown Rx TAB] Ondansetron [Zofran Odt] 4 mg PO Q8HR PRN #14 tab.rapdis 08/09/17 Unknown Rx traMADol [Ultram 50 MG tab] 50 mg PO Q4HR PRN #14 tablet 08/09/17 Unknown Rx Famotidine [Pepcid] 20 mg PO BID #30 tablet 08/03/18 Unknown Rx Magnesium Oxide 500 mg PO BID #30 capsule 08/03/18 Unknown Rx Potassium Chloride 20 meq PO QDAY #30 packet 08/03/18 Unknown Rx ED Physical Exam - General Limitations: No Limitations General appearance: alert, in no apparent distress - Head Head exam: Present: atraumatic, normocephalic - Eye Eye exam: Present: normal appearance, PERRL, EOMI - ENT ENT exam: Present: mucous membranes moist. Absent: normal orophraynx, TM's normal bilaterally, normal external ear exam - Neck Neck exam: Present: normal inspection, full ROM. Absent: tenderness, lymphadenopathy - Respiratory Respiratory exam: Present: normal lung sounds bilaterally. Absent: respiratory distress, wheezes, stridor, chest wall tenderness - Cardiovascular Cardiovascular Exam: Present: regular rate, normal rhythm, normal heart sounds. Absent: systolic murmur, diastolic murmur, rubs, gallop - GI/Abdominal GI/Abdominal exam: Present: soft, tenderness (LUQ, LLQ ), normal bowel sounds, organomegaly. Absent: distended, guarding, rebound, rigid, bruit, hernia - Rectal Rectal exam: Present: deferred - External exam: Present: other (exam deferred ) - Extremities Exam Extremities exam: Present: normal inspection, full ROM, normal capillary refill. Absent: tenderness, pedal edema, joint swelling - Back Exam Back exam: Present: normal inspection, full ROM. Absent: tenderness, CVA tenderness (R), CVA tenderness (L), muscle spasm, paraspinal tenderness, vertebral tenderness, rash noted - Neurological Exam Neurological exam: Present: alert, oriented X3, CN II-XII intact, normal gait, reflexes normal - Psychiatric Psychiatric exam: Present: normal affect, normal mood - Skin Skin exam: Present: warm ED Course Vital Signs 08/07/18 14:35 Temperature 98.0 F Pulse Rate 75 Respiratory 18 Rate Blood Pressure 165/80 O2 Sat by Pulse 97 Oximetry ED Medical Decision Making - Lab Data Result diagrams: 08/07/18 14:51 08/07/18 14:51 - Radiology Data Radiology results: report reviewed, image reviewed Ordering Physician: TON SMITH NP Date of Service: 08/07/18 Procedure(s): CT abdomen pelvis w con Accession Number(s): [id number] cc: TON SMITH NP PROCEDURE: CT ABDOMEN PELVIS W CON TECHNIQUE: Computerized axial tomography of the abdomen and pelvis was performed with intravenous contrast. CT DOSE LENGTH PRODUCT: 2543.5 mGycm HISTORY: Generalized abd pain COMPARISONS: CT A/P 03/11/2017 . FINDINGS: Visualized lower thorax: Linear atelectasis or scarring in the left base is noted. Small left pleural effusion is present Liver: Liver is small in size with a lobulated contour consistent with cirrhosis. Spleen: Enlarged and larger than seen previously. Currently measures 15.3 cm in length. Gallbladder and biliary system: Normal. Pancreas: Normal. Adrenals: Normal. Kidneys: Normal. GI tract: Sigmoid diverticulosis is noted. . Lymph nodes and mesentery: Normal. Vasculature: Moderate calcification of aorta is seen. Bladder: Normal. Reproductive organs: Normal. Peritoneum: There is a small amount of free fluid in the abdomen or pelvis consistent with new ascites. Musculoskeletal structures: No significant abnormality. Other: There is a small midline ventral hernia in the subxiphoid region. This co ntains a normal vessel and small amount of ascites fluid.. IMPRESSION: 1. No acute intra-abdominal process 2. Small subxiphoid ventral hernia now containing a small vessel and a small amount of ascites 3. Cirrhosis with splenomegaly 4. New small amount of ascites 5. Sigmoid diverticulosis This document is electronically signed by Mariela Santillan MD., August 07 2018 07:20:48 PM ET Transcribed By: [facility] Dictated By: MARIELA SANTILLAN MD Electronically Authenticated By: MARIELA SANTILLAN MD Signed Date/Time: 08/07/181922 DD/ 42 TD/TT: 08/07/181842 - Medical Decision Making PT has elloped at this time, I have previously discussed need to stop ETOH abuse, and follow with GI, and pcp as directed, call number listed on demographic sheet no answer unable to leave message patient condition undertermined at this time. Critical care attestation.: If time is entered above; I have spent that time in minutes in the direct care of this critically ill patient, excluding procedure time. ED Disposition Clinical Impression: Ventral hernia without obstruction or gangrene, Diverticulosis Abdominal pain Qualifiers: Abdominal location: epigastric Qualified Code(s): R10.13 - Epigastric pain Disposition: ELOPED Is pt being admited?: No Does the pt Need Aspirin: No Condition: Stable Instructions: Diverticulosis (ED), Ventral Hernia (ED), Diverticulosis Diet (ED), Abdominal Pain (ED) Referrals: [facility] [Provider Group] - 24 Hours [facility] [Outside] - 24 Hours Time of Disposition: 20:15
--- NOTE | 2018-08-07 19:23 | Cat Scan Report ---
PROCEDURE: CT ABDOMEN PELVIS W CON TECHNIQUE: Computerized axial tomography of the abdomen and pelvis was performed with intravenous co ntrast. CT DOSE LENGTH PRODUCT: 2543.5 mGycm HISTORY: Generalized abd pain COMPARISONS: CT A/P 03/11/2017 . FINDINGS: Visualized lower thorax: Linear atelectasis or scarring in the left base is noted. Small left pleural effusion is present Liver: Liver is small in size with a lobulated contour consistent with cirrhosis. Spleen: Enlarged and larger than seen previously. Currently measures 15.3 cm in length. Gallbladder and biliary system: Normal. Pancreas: Normal. Adrenals: Normal. Kidneys: Normal. GI tract: Sigmoid diverticulosis is noted. . Lymph nodes and mesentery: Normal. Vasculature: Moderate calcification of aorta is seen. Bladder: Normal. Reproductive organs: Normal. Peritoneum: There is a small amount of free fluid in the abdomen or pelvis consistent with new ascite s. Musculoskeletal structures: No significant abnormality. Other: There is a small midline ventral hernia in the subxiphoid region. This contains a normal vess el and small amount of ascites fluid.. IMPRESSION: 1. No acute intra-abdominal process 2. Small subxiphoid ventral hernia now containing a small vessel and a small amount of ascites 3. Cirrhosis with splenomegaly 4. New small amount of ascites 5. Sigmoid diverticulosis This document is electronically signed by Mariela Santillan MD., August 07 2018 07:20:48 PM ET
[2018-08-07 21:02] LABS: Bilirubin,Urine NEG (Negative); Blood,Urine SM (Negative); Color,Urine Colorless (Yellow); Protein,Urine <15 mg/dL mg/dL (Negative); Urobilinogen,Urine < 2.0 mg/dL (<2.0)
== END 2018-08-07 20:59 | disposition left against medical advice (07) ==
LOC: ED 14:19
DX: K43.9 Ventral hernia without obstruction or gangrene (principal); K57.90 Diverticulosis of intestine, part unspecified, without perforation or abscess without bleeding; I10 Essential (primary) hypertension; F31.9 Bipolar disorder, unspecified; F17.200 Nicotine dependence, unspecified, uncomplicated
CPT/HCPCS: 36415; 74177; 80048; 80076; 81001; 83690; 85025; 96372; 96374; 99284; J0500; J2405; J7030; Q9967

== ENCOUNTER 2018-08-08 20:51 | Emergency (ER) | payer MEDICAID ==
--- NOTE | 2018-08-08 21:27 | Emergency Department Report ---
Blank Doc - Documentation Documentation: pt is c/o abdominal pain states she has a hernia was here last night, had bloodwork and CT, eloped from ED no N/V/D last BM was today normal PMHx HTN, hypothyroidism, hep C- has not seen anyone recently +smoker +ETOH use no drug use
[2018-08-08 21:57] LABS: Basophils % (Auto) 0.8 % (0.0-1.8); Eosinophils # (Auto) 0.1 K/mm3 (0.0-0.4); Eosinophils % (Auto) 4.3 % (0.0-4.3); Hematocrit 34.9 % (30.3-42.9); Hemoglobin 12.1 gm/dl (10.1-14.3); Lymphocytes # (Auto) 0.8 K/mm3 (1.2-5.4); Lymphocytes % (Auto) 26.9 % (13.4-35.0); Mean Corpuscular HGB Conc 35 % (30-34); Mean Corpuscular Volume 96 fl (79-97); Monocytes # (Auto) 0.2 K/mm3 (0.0-0.8); Red Blood Count 3.65 M/mm3 (3.65-5.03); Red Cell Distribution Width 13.9 % (13.2-15.2)
[2018-08-08 21:59] LABS: Platelet Count 60 K/mm3 (140-440)
[2018-08-08 22:11] LABS: Alanine Aminotransferase 30 units/L (7-56); Albumin 2.7 g/dL (3.9-5); BUN/Creatinine Ratio 13; Blood Urea Nitrogen 8 mg/dL (7-17); Calcium 8.2 mg/dL (8.4-10.2); Hemolysis Index 13
[2018-08-09] MEDS ORDERED: NACL 0.9% 1000 ML 1,000 ML IV ONE (00:07)
[2018-08-09] MEDS ORDERED: BENTYL IM ONE (00:08)
[2018-08-09] MEDS ORDERED: ZOFRAN IV ONE (00:08)
[2018-08-09] MEDS ORDERED: PEPCID IV ONE (00:08)
[2018-08-09 03:34] LABS: Bilirubin,Urine NEG (Negative); Blood,Urine NEG (Negative); Color,Urine Yellow (Yellow); Mucus,Urine 2+ /HPF; Protein,Urine <15 mg/dL mg/dL (Negative)
--- NOTE | 2018-08-09 04:01 | Emergency Department Report ---
ED Abdominal Pain HPI - General Chief Complaint: Abdominal Pain Stated Complaint: ABDOMINAL PAIN Time Seen by Provider: 08/08/18 21:22 Source: patient, EMS Mode of arrival: Ambulatory Limitations: No Limitations - History of Present Illness Initial Comments: Patient is a 58-year-old white female with a history of chronic pancreatitis, chronic liver cirrhosis due to chronic hepatitis C presents to the ED with a complaint of acute onset persistent abdominal pain in the periumbilical area that radiates to the epigastric area for the last 3 days with nausea. The patient admits to drinking alcohol 4 days ago. Patient states that the pain is persistent, waxes and wanes since onset. Patient was extensively evaluated in this ED 24 hours ago with abdomen pelvis CT scan with contrast which showed a ventral hernia without incarceration and diverticulosis. Patient was discharged home on medications but returned barely 24 hours later stating that she did not pickle sorter her prescriptions from the ED because she eloped prior to being discharged officially from the ED. Patient states that her symptoms have worsened the last 2 hours. Patient denies fever, chills, vomiting, diarrhea, chest pain, shortness of breath, dysuria, urinary frequency and urgency, vaginal bleeding or back pain. MD Complaint: abdominal pain -: Sudden, days(s) (3) Location: periumbilical Radiation: none Migration to: no migration Severity: moderate Severity scale (0 -10): 6 Quality: cramping, aching Consistency: constant Improves With: nothing Worsens With: nothing Associated Symptoms: denies other symptoms, nausea. denies: vomiting, diarrhea, fever, chills, dysuria, hematemesis, hematochezia, melena, anorexia, syncope - Related Data Previous Rx's Medication Instructions Recorded Last Taken Type Acetaminophen with Codeine 1 tab PO Q6HR #20 tab 03/14/16 Unknown Rx [Acetaminophen-Codeine #4 TAB] HYDROcodone/ACETAMINOPHEN [[place] 1 each PO Q6H #15 tablet 01/11/17 Unknown Rx 5-325 Tablet] Methocarbamol [Robaxin-750] 750 mg PO BID #14 tablet 01/11/17 Unknown Rx Nitrofurantoin [place]/M-Cryst 100 mg PO Q12HR #14 capsule 04/17/17 Unknown Rx [Macrobid CAP] Ondansetron [Zofran Odt] 4 mg PO Q8HR PRN #20 tab.rapdis 04/17/17 Unknown Rx Ciprofloxacin HCl [Ciprofloxacin 500 mg PO Q12H #14 tab 08/09/17 Unknown Rx TAB] Ondansetron [Zofran Odt] 4 mg PO Q8HR PRN #14 tab.rapdis 08/09/17 Unknown Rx traMADol [Ultram 50 MG tab] 50 mg PO Q4HR PRN #14 tablet 08/09/17 Unknown Rx Famotidine [Pepcid] 20 mg PO BID #30 tablet 08/03/18 Unknown Rx Magnesium Oxide 500 mg PO BID #30 capsule 08/03/18 Unknown Rx Potassium Chloride 20 meq PO QDAY #30 packet 08/03/18 Unknown Rx Dicyclomine [Bentyl] 20 mg PO Q6H #24 tablet 08/09/18 Unknown Rx Ondansetron [Zofran Odt] 4 mg PO Q6HR #15 tab.rapdis 08/09/18 Unknown Rx Ranitidine HCl [Zantac] 150 mg PO Q12H #24 tablet 08/09/18 Unknown Rx Allergies Allergy/AdvReac Type Severity Reaction Status Date / Time naproxen Allergy Nausea Verified 08/07/18 14:31 ED Review of Systems ROS: Stated complaint: ABDOMINAL PAIN Other details as noted in HPI Comment: All other systems reviewed and negative Constitutional: see HPI. denies: chills, fever, malaise, weakness Eyes: as per HPI. denies: eye pain, eye discharge, vision change ENT: as per HPI. denies: ear pain, throat pain Respiratory: denies: cough, shortness of breath, wheezing Cardiovascular: as per HPI. denies: chest pain, palpitations, dyspnea on exertion, orthopnea, edema, other Endocrine: no symptoms reported, see HPI. denies: increased hunger, increased urine Gastrointestinal: abdominal pain, nausea. denies: vomiting, diarrhea, constipation, hematemesis, hematochezia Genitourinary: as per HPI. denies: urgency, dysuria, discharge Musculoskeletal: as per HPI. denies: back pain, joint swelling, arthralgia Skin: as per HPI. denies: rash, lesions, change in color, change in hair/nails Neurological: as per HPI. denies: headache, weakness, paresthesias Psychiatric: as per HPI. denies: anxiety, depression Hematological/Lymphatic: as per HPI. denies: easy bleeding, easy bruising ED Past Medical Hx - Past Medical History Previous Medical History?: Yes Hx Hypertension: Yes Hx Liver Disease: Yes (hep C; cirrohosis) Hx Psychiatric Treatment: Yes (Bipolar) Additional medical history: thyroid, panreatitis,neck pain r/t disc disease - Surgical History Past Surgical History?: No - Social History Smoking Status: Current Every Day Smoker Substance Use Type: Alcohol - Medications Home Medications: Home Medications Medication Instructions Recorded Confirmed Last Taken Type Acetaminophen with Codeine 1 tab PO Q6HR #20 tab 03/14/16 Unknown Rx [Acetaminophen-Codeine #4 TAB] HYDROcodone/ACETAMINOPHEN [[place] 1 each PO Q6H #15 tablet 01/11/17 Unknown Rx 5-325 Tablet] Methocarbamol [Robaxin-750] 750 mg PO BID #14 tablet 01/11/17 Unknown Rx Nitrofurantoin [place]/M-Cryst 100 mg PO Q12HR #14 capsule 04/17/17 Unknown Rx [Macrobid CAP] Ondansetron [Zofran Odt] 4 mg PO Q8HR PRN #20 tab.rapdis 04/17/17 Unknown Rx Ciprofloxacin HCl [Ciprofloxacin 500 mg PO Q12H #14 tab 08/09/17 Unknown Rx TAB] Ondansetron [Zofran Odt] 4 mg PO Q8HR PRN #14 tab.rapdis 08/09/17 Unknown Rx traMADol [Ultram 50 MG tab] 50 mg PO Q4HR PRN #14 tablet 08/09/17 Unknown Rx Famotidine [Pepcid] 20 mg PO BID #30 tablet 08/03/18 Unknown Rx Magnesium Oxide 500 mg PO BID #30 capsule 08/03/18 Unknown Rx Potassium Chloride 20 meq PO QDAY #30 packet 08/03/18 Unknown Rx Dicyclomine [Bentyl] 20 mg PO Q6H #24 tablet 08/09/18 Unknown Rx Ondansetron [Zofran Odt] 4 mg PO Q6HR #15 tab.rapdis 08/09/18 Unknown Rx Ranitidine HCl [Zantac] 150 mg PO Q12H #24 tablet 08/09/18 Unknown Rx ED Physical Exam - General Limitations: No Limitations General appearance: alert, in no apparent distress - Head Head exam: Present: atraumatic, normocephalic, normal inspection - Eye Eye exam: Present: normal appearance, PERRL, EOMI - ENT ENT exam: Present: normal exam, normal orophraynx, mucous membranes moist. Absent: TM's normal bilaterally, normal external ear exam - Neck Neck exam: Present: normal inspection, full ROM. Absent: tenderness, meningismus, lymphadenopathy, thyromegaly - Respiratory Respiratory exam: Present: normal lung sounds bilaterally. Absent: respiratory distress, wheezes, rales, rhonchi, chest wall tenderness, accessory muscle use, decreased breath sounds, prolonged expiratory - Cardiovascular Cardiovascular Exam: Present: regular rate, normal rhythm, normal heart sounds. Absent: systolic murmur, diastolic murmur, rubs, gallop - GI/Abdominal GI/Abdominal exam: Present: soft, tenderness (palpable periumbilical mild tenderness, no guarding or rebound), normal bowel sounds. Absent: guarding, rebound, hyperactive bowel sounds, hypoactive bowel sounds, organomegaly - Rectal Rectal exam: Present: deferred - Extremities Exam Extremities exam: Present: normal inspection - Back Exam Back exam: Present: normal inspection - Neurological Exam Neurological exam: Present: alert, oriented X3 - Psychiatric Psychiatric exam: Present: normal affect, normal mood - Skin Skin exam: Present: warm, dry, intact, normal color. Absent: rash ED Course Vital Signs 08/08/18 21:15 Temperature 97.7 F Pulse Rate 85 Respiratory 18 Rate Blood Pressure 148/80 O2 Sat by Pulse 99 Oximetry - Reevaluation(s) Reevaluation #1: 08/09/18 04:03 Patient is alert and oriented 3 and is not in distress with normal vital signs. Labs were drawn including urinalysis. Patient was treated for pain in the ED. Lab test results were reviewed and are remarkable for leukopenia of 2.9, AST of 51, alkaline phosphatase was 130, and lipase is 64. Urinalysis is unremarkable. On reevaluation, patient's pain is well controlled with medications. Patient's pain is likely from chronic pancreatitis as well as ventral hernia. Patient was discharged home on pain medications and advised to follow up with the [facility] and her primary care physician at [facility] for further evaluation in 3-5 days. Patient is advised to return to the ED immediately if symptoms get worse. ED Medical Decision Making - Lab Data Result diagrams: 08/08/18 21:41 08/08/18 21:41 - Medical Decision Making Patient is alert and oriented 3 and is not in distress with normal vital signs. Labs were drawn including urinalysis. Patient was treated for pain in the ED. Lab test results were reviewed and are remarkable for leukopenia of 2.9, AST of 51, alkaline phosphatase was 130, and lipase is 64. Urinalysis is unremarkable. On reevaluation, patient's pain is well controlled with medications. Patient's pain is likely from chronic pancreatitis as well as ventral hernia. Patient was discharged home on pain medications and advised to follow up with the [facility] and her primary care physician at [facility] for further evaluation in 3-5 days. Patient is advised to return to the ED immediately if symptoms get worse. - Differential Diagnosis abdominal pain, chronic pancreatitis, Ventral hernia Critical care attestation.: If time is entered above; I have spent that time in minutes in the direct care of this critically ill patient, excluding procedure time. ED Disposition Clinical Impression: Abdominal pain Qualifiers: Abdominal location: periumbilical Qualified Code(s): R10.33 - Periumbilical pain Chronic pancreatitis Qualifiers: Pancreatitis type: drug induced Qualified Code(s): K86.1 - Other chronic pancreatitis; T50.905A - Adverse effect of unspecified drugs, medicaments and biological substances, initial encounter Disposition: TO HOME OR SELFCARE Is pt being admited?: No Does the pt Need Aspirin: No Condition: Stable Instructions: Abdominal Pain (ED) Additional Instructions: Take medications with food, drink plenty of fluids and follow-up as advised. Return to the ED immediately if symptoms get worse. Prescriptions: Dicyclomine [Bentyl] 20 mg PO Q6H #24 tablet Ranitidine HCl [Zantac] 150 mg PO Q12H #24 tablet Ondansetron [Zofran Odt] 4 mg PO Q6HR #15 tab.rapdis Referrals: GEOFF ERAZO MD [Primary Care Provider] - 3-5 Days EDUARDO CONCEPCION MD [Staff Physician] - 3-5 Days Time of Disposition: 04:21 Print Language: YAKUT
[2018-08-09 05:19] VITALS: BP 133/74
== END 2018-08-09 04:55 | disposition home or self-care (01) ==
LOC: ED 20:51
DX: K86.1 Other chronic pancreatitis (principal); I10 Essential (primary) hypertension; F17.200 Nicotine dependence, unspecified, uncomplicated; Z88.8 Allergy status to other drugs, medicaments and biological substances
CPT/HCPCS: 36415; 80053; 81001; 83690; 85025; 96372; 96374; 96375; 99284; J0500; J2405; J7030; 96361